=== PATIENT | male | born 1945 | race Caucasian/White ===

== ENCOUNTER → 2024-01-21 09:45 | Outpatient (REF) | payer OTHER, SELFPAY ==
[2024-01-23 15:56] LABS: % Free Testosterone 1.8 % (1.6-2.9); Free Testosterone 11 pg/mL (47-244); Sex Hormone Binding Globulin 28 nmol/L (19-76); Testosterone, Bioavailable 32 ng/dL (131-682); Total Testosterone 61 ng/dL (300-720)
== END ==
LOC: REG 09:45
PROVIDERS: ATTENDING PHYSICIAN Family Medicine Geriatric Medicine; FAMILY PHYSICIAN Internal Medicine
DX: Z79.818 Long term (current) use of other agents affecting estrogen receptors and estrogen levels (principal)
CPT/HCPCS: 36415; 84270; 84402; 84403

== ENCOUNTER 2024-05-11 17:25 | Emergency (ER) | payer OTHER, SELFPAY ==
[2024-05-11 17:27] VITALS: BP 160/68
--- NOTE | 2024-05-11 18:58 | ED.GENMED ---
History of Present Illness
General
Chief Complaint: Fall
Source: patient
Exam Limitations: none
Time Seen by Provider: 05/11/24 18:26
Nursing documentation reviewed up to this point in time: agreed with
History of Present Illness
History of Present Illness:
Patient is a 78-year-old male who presents today for evaluation. Patient reports prior to arrival he was standing 2 feet on a stool ladder and fell landing on his left shoulder and left rib area. He denies hitting his head. He is however on
Eliquis.
He denies any headache neck pain back pain. Does complain of soreness to the left rib. He primarily complains of left shoulder pain. He does report he has a prescription left elbow but that is not hurting him. No other injuries.
Past History
Past History
ED Past Medical History: GERD, HTN, NIDDM and Other (Peptic ulcer disease, pneumonia )
ED Past Surgical History: Appendectomy, Cholecystectomy and Other (Sinus surgery)
Social History
Tobacco: Non-smoker
Alcohol: None
Drug: None
Personal:
Employment: Employed
Family History
Family History: Other (longevity )
Review of Systems
Review of Systems
Allergies reviewed?: Yes
All Other Systems: ROS reviewed and negative except as documented in HPI and ROS
Constitutional: Reports no symptoms; Denies fever, fatigue or chills
Respiratory: Reports other (Left lateral rib area denies pain with deep breath); Denies trouble breathing
Cardiac: Reports no symptoms
ABD/GI: Reports no symptoms
: Reports no symptoms
Musculoskeletal: Reports other (+ left shoulder pain ); Denies neck pain or back pain
Skin: Reports no symptoms
Neurological: Denies dizzy or headache
Psychiatric: Reports no symptoms
Phy Exam
General Physical Exam
General Presentation: no apparent distress
General age: appears stated age
General Skin: warm and dry
General Habitus: elderly
General Mental: alert
General Hydration: appears well hydrated
Eye Exam
Eye Exam: PERRL and EOMI
Eye Exam General: PERRL: bilateral and EOM intact: bilateral
Pupil Exam: Bilateral: round and reactive
Cardiovascular Exam
Cardiovascular Exam: regular rate/rhythm, no murmur and normal peripheral pulses
Pulmonary Exam
Pulmonary Exam: lungs clear, no respiratory distress and other (Mild tenderness along ribs to left lateral axilla region no crepitus no ecchymosis or abrasions no pain with breath)
Neurological Exam
Neurological Exam: alert and oriented x3
Musculoskeletal Exam
Musculoskeletal Exam: other (Tender to left proximal humerus pain with left shoulder abduction and very decreased range of motion for left shoulder abduction normal distal sensation and fall intern strength normal strong pulses. No bony tenderness to
elbow positive abrasion to proximal forearm)
Skin Exam
Skin Exam: normal color and warm/dry
Psychiatric Exam
Psychiatric Exam: normal mood/affect
Course
Orders/Labs/Results
Orders:
Orders
05/11/24 17:30
CR Shoulder, Trauma - Left Urgent
Reason For Exam: fall
Elbow, Left [CR Elbow - Left Min 3 Views ] Urgent
Comment:
Reason For Exam: fall
05/11/24 18:33
CT Head W/o Iv Contrast Urgent
Comment:
Reason For Exam: trauma
05/11/24 18:57
Tetanus/Diphth/Acelpertussis [Adacel] 0.5 ml IM .ONCE ONE
05/11/24 19:01
Ribs, Left 3 View W/PA Chest CR [CR Ribs-left 3 Vw W/pa Chest] Urgent
Comment:
Reason For Exam: trauma
05/11/24 19:03
CT Cervical Spine W/o Iv Contr Urgent
Comment:
Reason For Exam: trauma
05/11/24 20:36
Sling Left-Treatment ONCE
Vital Signs
Initial and Last Documented VS:
Initial Vital Signs
Temp Pulse Resp BP Pulse Ox
98.3 F 69 20 160/68 95
05/11/24 17:27 05/11/24 17:27 05/11/24 17:27 05/11/24 17:27 05/11/24 17:27
Last Documented Vital Signs
Temp Pulse Resp BP Pulse Ox
98.3 F 62 20 109/53 98
05/11/24 17:27 05/11/24 20:48 05/11/24 20:48 05/11/24 20:48 05/11/24 20:48
MDM/Problems Addressed
Differential Diagnosis Includes:
Not limited to shoulder sprain strain, fracture, contusion, rib fracture versus contusion head injury
MDM/Problems Addressed:
Patient is a 78-year-old male who describes mechanical fall landing on left shoulder also hit left rib. He denies hitting his head but he is on Eliquis will CT his head and neck. Patient's primary complaint is his left shoulder on exam he is quite
tender and has decreased shoulder abduction. Patient with abrasion to elbow however nontender we will image his shoulder
*Radiology
Radiology exam reviewed: radiology read reviewed
*Pulse Oximetry
Patient hypoxic: no
*Critical Care Note
Total Time (30-74mins, 75-104mins- exclusive of procedures): Not Applicable
ED Attending Note
-
Portions of this chart may have been created with voice recognition software.� Occasional wrong word or��sound alike� substitutions may have occurred due to the inherent limitations of voice recognition software.
Discharge Plan
Departure
Patient Disposition: Home (Routine Discharge)
Date of Disposition: 05/11/24
Time of Disposition: 20:32
Patient with high blood pressure during this ER visit?: Yes
Condition: Fair
Covid-19: Not Applicable
Discharge Problem:
Left shoulder strain, Contusion of rib, Abrasion
Instructions: Contusion (DC), Bruised Rib (DC), Shoulder Pain ED, BLOOD PRESSURE
Prescriptions:
No Action
atenolol 25 MG tablet
50 mg PO DAILY
amlodipine 5 MG tablet
5 mg PO DAILY
sitagliptin phos-metformin [Janumet] 1 EACH tablet
100 mg PO DAILY
atorvastatin 40 MG tablet
40 mg PO DAILY
glipizide 10 MG tablet
10 mg PO DAILY
metformin 1,000 MG tablet
1,500 mg PO DAILY
apixaban [Eliquis] 5 MG tablet
5 mg PO DAILY
bisacodyl [Fleet Bisacodyl] 37 ML enema
37 ml ID TH
acetaminophen [Tylenol Extra Strength] 500 MG tablet
1,000 mg PO Q6HPRN PRN (Reason: pain)
canagliflozin [Invokana] 100 MG tablet
100 mg PO DAILY
Referrals:
Estella Mai I., DO [Active] -
Martha March OYSTER WORKER [Family Provider] -
Activity Restrictions/Additional Instructions:
As discussed there is no obvious fractures to your shoulder however please follow-up with orthopedics for further evaluation. Ice pack to the area for the next 24 to 48 hours 20 minutes at a time several times a day. You may wear sling for
support but remove at night while sleeping. Also remove several times a day and try to do gentle range of motion. You May take Tylenol for pain.
Call orthopedics tomorrow
Interventions
Interventions:
*Risk Screen - Suicide Last Done: 05/11/24 17:27
*General Assessment Last Done: 05/11/24 17:27
*Neglect/Abuse Screening Last Done: 05/11/24 17:27
ED- Fall Risk Assessment Last Done: 05/11/24 21:00
*ED COVID-19 Vaccine History Last Done: 05/11/24 17:27
*Nursing Disposition Last Done: 05/11/24 21:00
ED-Musculoskeletal Assessment Last Done: 05/11/24 17:59
ED- Neurological Assessment Last Done: 05/11/24 17:54
ED-Skin Assessment Last Done: 05/11/24 17:55
Discharge Date and Time
Discharge Date/Time: 05/11/24 21:00
Print Language: GEORGIAN
[2024-05-11] MEDS: ADACEL 0.5 ML IM (19:36)
[2024-05-11 20:48] VITALS: BP 109/53
== END 2024-05-11 21:00 | disposition home or self-care (01) ==
LOC: EMR 17:25
PROVIDERS: EMERGENCY PHYSICIAN Emergency Medicine; FAMILY PHYSICIAN Internal Medicine
DX: S46.912A Strain of unspecified muscle, fascia and tendon at shoulder and upper arm level, left arm, initial encounter (principal); S20.212A Contusion of left front wall of thorax, initial encounter; S50.312A Abrasion of left elbow, initial encounter; W11.XXXA Fall on and from ladder, initial encounter; R03.0 Elevated blood-pressure reading, without diagnosis of hypertension; Z23 Encounter for immunization
CPT/HCPCS: 99285; 90471; 70450; 71101; 72125; 73030; 73080; 90715

== ENCOUNTER → 2024-05-23 06:42 | Outpatient (REF) | payer OTHER, SELFPAY | LOC: MRI 06:42 | PROVIDERS: ATTENDING PHYSICIAN Orthopaedic Surgery; FAMILY PHYSICIAN Internal Medicine | DX: M25.512 Pain in left shoulder (principal) | CPT/HCPCS: 73221 ==

== ENCOUNTER 2024-07-20 06:34 | Day surgery (SDC) | payer OTHER, SELFPAY ==
[2024-07-04 10:15] VITALS: BMI 31.2
[2024-07-04 10:43] LABS: Hematocrit 39.4 % (39.0-52.0); Hemoglobin 13.1 g/dL (13.0-18.0); Mean Corp Hgb Conc. 33.2 g/dL (33.0-37.0); Mean Corpuscular Hgb 32.5 pg (27.0-31.0); Mean Corpuscular Volume 97.8 fL (80.0-94.0); Mean Platelet Volume 11.3 fL (7.4-10.4); Platelet Count 241 10^3/uL (130-400); Red Blood Cell Count 4.03 10^6/uL (4.70-6.10); Red Cell Dist. Width 13.9 % (11.5-14.5)
[2024-07-20] VITALS (18 sets, daily range): BP systolic 104–156; BP diastolic 56–107; BMI 31.2
[2024-07-20] MEDS: CELEBREX 200 MG PO (08:23)
[2024-07-20] MEDS: TYLENOL 1000 MG PO (08:23)
[2024-07-20] MEDS: NORMOSOL-R/PLASMALYTE-A 1000 IV (08:24)
[2024-07-20 08:28] LABS: Glucose - Point of Care 205 mg/dl (70-99)
[2024-07-20 12:18] LABS: Glucose - Point of Care 269 mg/dl (70-99)
[2024-07-20] MEDS: NOVOLOG vial 2 UNITS SC (12:30)
[2024-07-20 14:21] LABS: Glucose - Point of Care 247 mg/dl (70-99)
[2024-07-20] MEDS: NOVOLOG vial 1 UNITS SC (14:28)
[2024-07-20] MEDS: TYLENOL 650 MG PO (16:53)
== END 2024-07-20 17:23 | disposition home or self-care (01) ==
LOC: SDS 06:34
PROVIDERS: ATTENDING PHYSICIAN Orthopaedic Surgery; FAMILY PHYSICIAN Internal Medicine
DX: S46.012A Strain of muscle(s) and tendon(s) of the rotator cuff of left shoulder, initial encounter (principal); S46.212A Strain of muscle, fascia and tendon of other parts of biceps, left arm, initial encounter; X58.XXXA Exposure to other specified factors, initial encounter
CPT/HCPCS: 29827; 36415; 71045; 82962; 85027; C1713

== ENCOUNTER 2024-09-06 13:20 | Outpatient (RCR) | payer OTHER, SELFPAY | END 2024-09-06 23:59 | disposition home or self-care (01) | LOC: RPT 13:20 | PROVIDERS: ATTENDING PHYSICIAN Physician Assistant Medical | DX: Z47.89 Encounter for other orthopedic aftercare (principal); M75.122 Complete rotator cuff tear or rupture of left shoulder, not specified as traumatic (principal); Z98.890 Other specified postprocedural states; Z73.6 Limitation of activities due to disability; M25.512 Pain in left shoulder | CPT/HCPCS: 97010; 97110; 97140; 97162 ==

== ENCOUNTER 2024-10-02 12:58 | Outpatient (RCR) | payer OTHER, SELFPAY | END 2024-10-02 23:59 | disposition home or self-care (01) | LOC: RPT 12:58 | PROVIDERS: ATTENDING PHYSICIAN Physician Assistant Medical | DX: Z47.89 Encounter for other orthopedic aftercare (principal); M75.122 Complete rotator cuff tear or rupture of left shoulder, not specified as traumatic (principal); Z98.890 Other specified postprocedural states; Z73.6 Limitation of activities due to disability; M62.81 Muscle weakness (generalized) | CPT/HCPCS: 97010; 97110; 97140 ==

== ENCOUNTER → 2024-10-04 09:56 | Outpatient (REF) | payer OTHER, SELFPAY | LOC: RCS 09:56 | PROVIDERS: ATTENDING PHYSICIAN Internal Medicine Cardiovascular Disease; FAMILY PHYSICIAN Internal Medicine; OTHER PHYSICIAN Nurse Practitioner | DX: I34.0 Nonrheumatic mitral (valve) insufficiency (principal) | CPT/HCPCS: 93306 ==

== ENCOUNTER 2024-11-03 12:51 | Outpatient (RCR) | payer OTHER, SELFPAY | END 2024-11-03 23:59 | disposition home or self-care (01) | LOC: RPT 12:51 | PROVIDERS: ATTENDING PHYSICIAN Physician Assistant Medical | DX: Z47.89 Encounter for other orthopedic aftercare (principal); M75.122 Complete rotator cuff tear or rupture of left shoulder, not specified as traumatic; Z73.6 Limitation of activities due to disability; M62.81 Muscle weakness (generalized); Z98.890 Other specified postprocedural states | CPT/HCPCS: 97010; 97110; 97140 ==

== ENCOUNTER 2024-12-05 13:51 | Outpatient (RCR) | payer OTHER, SELFPAY | END 2024-12-05 23:59 | disposition home or self-care (01) | LOC: RPT 13:51 | PROVIDERS: ATTENDING PHYSICIAN Physician Assistant Medical | DX: Z47.89 Encounter for other orthopedic aftercare (principal); M75.122 Complete rotator cuff tear or rupture of left shoulder, not specified as traumatic; Z73.6 Limitation of activities due to disability; M62.81 Muscle weakness (generalized) | CPT/HCPCS: 97010; 97110; 97140 ==

== ENCOUNTER 2024-12-19 06:33 | Day surgery (SDC) | payer OTHER, SELFPAY ==
[2024-12-11 13:19] VITALS: BMI 34.1
[2024-12-19 07:28] LABS: Glucose - Point of Care 195 mg/dl (70-99)
[2024-12-19 07:32] VITALS: BMI 32.1
== END 2024-12-19 08:47 | disposition home or self-care (01) ==
LOC: CATH 06:33
PROVIDERS: ATTENDING PHYSICIAN Internal Medicine Cardiovascular Disease; FAMILY PHYSICIAN Internal Medicine
DX: I48.19 Other persistent atrial fibrillation (principal); E11.9 Type 2 diabetes mellitus without complications; E66.9 Obesity, unspecified; E78.5 Hyperlipidemia, unspecified; I08.1 Rheumatic disorders of both mitral and tricuspid valves; I10 Essential (primary) hypertension; K76.0 Fatty (change of) liver, not elsewhere classified; M85.80 Other specified disorders of bone density and structure, unspecified site; Z68.34 Body mass index [BMI] 34.0-34.9, adult; Z79.01 Long term (current) use of anticoagulants; Z79.4 Long term (current) use of insulin; Z79.84 Long term (current) use of oral hypoglycemic drugs; Z79.899 Other long term (current) drug therapy; Z85.828 Personal history of other malignant neoplasm of skin; Z86.0100 Personal history of colon polyps, unspecified; Z87.19 Personal history of other diseases of the digestive system; Z87.891 Personal history of nicotine dependence; Z88.1 Allergy status to other antibiotic agents; Z88.0 Allergy status to penicillin; Z88.5 Allergy status to narcotic agent; Z88.8 Allergy status to other drugs, medicaments and biological substances; Z90.89 Acquired absence of other organs; Z90.49 Acquired absence of other specified parts of digestive tract
CPT/HCPCS: 82962; 92960; 93005

== ENCOUNTER 2024-12-29 06:46 | Outpatient (RCR) | payer OTHER, SELFPAY | END 2024-12-29 23:59 | disposition home or self-care (01) | LOC: RPT 06:46 | PROVIDERS: ATTENDING PHYSICIAN Physician Assistant Medical | DX: Z47.89 Encounter for other orthopedic aftercare (principal); M75.122 Complete rotator cuff tear or rupture of left shoulder, not specified as traumatic; Z73.6 Limitation of activities due to disability; M62.81 Muscle weakness (generalized) | CPT/HCPCS: 97010; 97110 ==

== ENCOUNTER 2025-02-20 12:08 | Inpatient (IN) | payer OTHER, SELFPAY ==
--- NOTE | 2025-02-20 11:14 | W.PN.CD ---
Addendum entered and electronically signed by Arnol Blount MD 02/20/25 14:49:
I saw and examined the patient.
The CUSTOMER FACILITIES SUPERVISOR's note was reviewed and I agree with the note.
79-year-old male with a history of paroxysmal atrial fibrillation moderate mitral regurgitation, previous history of TIA and presumed coronary artery disease based on abnormal stress test, diabetes who presents for evaluation he has had paroxysmal
atrial fibrillation he says he has been back in sinus rhythm last 2 weeks he feels more fatigued when he is in sinus rhythm. Based on the above we discussed options for additional rhythm control. Plan for admission for sotalol. Incidentally
patient noted to be hyperglycemic. Will proceed as follows
- Continue anticoagulation with Eliquis
- Discontinue atenolol
- Start sotalol with monitoring as per protocol
- Additional consultation for diabetes management
Original Note:
Today's Communication / Plan
-
*THIS IS THE H&P SUMMARY. PLEASE SEE SCANNED H&P*
Await BMP. Sotalol loading per protocol.
Impression / Plan
-
I/P: 79M with paroxysmal atrial fibrillation, moderate mitral regurgitation, TIA, presumed CAD (abnormal stress test without symptoms), type 2 diabetes mellitus, asthma, and prostate cancer status post XRT presents for sotalol loading.
Primary wrecker operator: Dr. Blount
Paroxysmal atrial fibrillation
- More frequent paroxysmal episodes some becoming persistent
- Stop atenolol
- S/p DCCV 12/19/2024 and presented back to the office 01/11/2025 again in atrial fibrillation
- The plan is for rhythm control with sotalol. Await BMP. Sotalol loading per protocol.
- Oral Anticoagulation: Apixaban 5 mg twice daily, he denies missed doses and abnormal bleeding
- [id number]: Score at least 5 (HTN, age 75 or more, prior Stroke/TIA), 6 if we add vascular disease (presumed)
Mitral regurgitation, moderate
Presumed CAD, stable without chest pain
Prior TIA
Type 2 diabetes mellitus, with hyperglycemia, he may need diabetic CUSTOMER FACILITIES SUPERVISOR assistance
Asthma, chronic, stable without wheeze, no acute exacerbation
SUBJECTIVE:
He denies chest pain, shortness of breath, and dizziness.
DATA:
Transthoracic echocardiogram 10/04/2024:
Estimated left ventricular ejection fraction is 50-55%. Normal regional wall
motion.
Normal right ventricular size and function.
Moderately dilated left atrium.
Moderate mitral regurgitation.
Aortic sclerosis without stenosis.
Mild tricuspid regurgitation. Estimated pulmonary artery pressure of 30-35
mmHg.
Compared to previous echo on 07/21/2023, slightly progressive mitral
regurgitation is noted.
Data Reviewed
-
Date of Service: February 20, 2025
[2025-02-20 12:25] VITALS: BP 156/68
[2025-02-20 12:27] VITALS: BMI 28.6
[2025-02-20 13:12] LABS: Blood Urea Nitrogen 27 mg/dl (9-20); Calcium 9.8 mg/dl (8.4-10.2); Carbon Dioxide 23 mmol/L (22-30); Chloride 103 mmol/L (98-107); Estimated Creatinine Clearance 66 ml/min; Glucose 426 mg/dl (70-99); Potassium 4.9 mmol/L (3.5-5.1); Sodium 134 mmol/L (135-145); eGFR > 60.00
[2025-02-20] MEDS: BETAPACE 80 MG PO (13:42)
--- NOTE | 2025-02-20 13:42 | CM ---
Reviewed chart. Met with Mr. Solorzano to review discharge plans. He states prior to admission he resides alone in a two story home without any steps to enter. He states he has a first floor set-up. His main suite is on the first floor. He states prior
to admission he was independent with ambulation and adls. He states he does not have any DME in the home. He states he has a prescription plan and uses [facility]. Medical work-up in progress. The discharge plan is to return home when medically
stable.
[2025-02-20] MEDS: NORVASC 5 MG PO (14:05)
[2025-02-20 15:18] VITALS: BP 133/64
[2025-02-20] MEDS: JANUVIA 100 MG PO (15:23)
[2025-02-20] MEDS: NOVOLOG FLEXPEN-LOW RESISTANCE 5 UNITS SC (15:26)
[2025-02-20 15:51] VITALS: BMI 28.6
[2025-02-20 16:41] LABS: Magnesium 2.0 mg/dl (1.6-2.3)
--- NOTE | 2025-02-20 16:43 | PTCARENOTE ---
Pt received at 1225 as a direct admit for Sotalol. Arrived in SR rate in the 80's to 90's. Medicated with Sotalol 80mg po as ordered. Pt oob ad herbert. Denies any pain or discomfort. Room air sat 98%.
[2025-02-20] MEDS: NOVOLOG FLEXPEN-LOW RESISTANCE 3 UNITS SC (17:44)
[2025-02-20 18:51] VITALS: BP 123/56
[2025-02-20] MEDS: ELIQUIS 5 MG PO (19:37)
[2025-02-20 22:10] VITALS: BP 144/65
[2025-02-20] MEDS: LIPITOR 40 MG PO (22:15)
[2025-02-20] MEDS: ZOLOFT 75 MG PO (22:15)
[2025-02-20] MEDS: LANTUS 0.2 UNITS SC (22:15)
[2025-02-21] VITALS (8 sets, daily range): BP systolic 116–157; BP diastolic 52–122
[2025-02-21] MEDS: BETAPACE 80 MG PO ×3 (00:04→22:00)
--- NOTE | 2025-02-21 00:30 | PTCARENOTE ---
Pt rec'd at shift change awake,alert Sinus on telemetry with pvc's. Dose # 2 Sotalol given with next ptt due at 0200.
--- NOTE | 2025-02-21 00:37 | PTCARENOTE ---
At 0031 pt converted to controlled afib
[2025-02-21] MEDS: ELIQUIS 5 MG PO ×2 (07:43→20:40)
[2025-02-21] MEDS: NORVASC 5 MG PO (07:43)
[2025-02-21 07:49] LABS: Glucose - Point of Care 210 mg/dl (70-99)
[2025-02-21] MEDS: NOVOLOG FLEXPEN-LOW RESISTANCE 2 UNITS SC ×2 (07:49→12:06)
[2025-02-21] MEDS: JANUVIA 100 MG PO (07:51)
[2025-02-21] MEDS: GLUCOPHAGE 750 MG PO (07:51)
[2025-02-21 07:52] LABS: Glucose - Point of Care 261 mg/dl (70-99)
[2025-02-21 07:52] LABS: Glucose - Point of Care 390 mg/dl (70-99)
[2025-02-21 07:52] LABS: Glucose - Point of Care 288 mg/dl (70-99)
[2025-02-21] MEDS: GLUCOTROL 5 MG PO (07:53)
[2025-02-21 09:12] LABS: Glycohemoglobin (HgbA1c) 8.7 % (4.0-5.6)
--- NOTE | 2025-02-21 10:22 | W.PN.CD ---
Today's Communication / Plan
-
cont sotalol
Impression / Plan
-
I/P: 79M with paroxysmal atrial fibrillation, moderate mitral regurgitation, TIA, presumed CAD (abnormal stress test without symptoms), type 2 diabetes mellitus, asthma, and prostate cancer status post XRT presents for sotalol loading.
Primary consulting actuary: Dr. Blount
Paroxysmal atrial fibrillation
- More frequent paroxysmal episodes some becoming persistent
- Stop atenolol
- S/p DCCV 12/19/2024 and presented back to the office 01/11/2025 again in atrial fibrillation
- The plan is for rhythm control with sotalol. Await BMP. Sotalol loading per protocol.
- Oral Anticoagulation: Apixaban 5 mg twice daily, he denies missed doses and abnormal bleeding
- [id number]: Score at least 5 (HTN, age 75 or more, prior Stroke/TIA), 6 if we add vascular disease (presumed)
- QTC noted cont to monitor discussed with EP
Mitral regurgitation, moderate
Presumed CAD, stable without chest pain
Prior TIA
Type 2 diabetes mellitus, with hyperglycemia, he may need diabetic TEACHER HEARING IMPAIRED assistance
Asthma, chronic, stable without wheeze, no acute exacerbation
SUBJECTIVE:
Feeling well
DATA:
Transthoracic echocardiogram 10/04/2024:
Estimated left ventricular ejection fraction is 50-55%. Normal regional wall
motion.
Normal right ventricular size and function.
Moderately dilated left atrium.
Moderate mitral regurgitation.
Aortic sclerosis without stenosis.
Mild tricuspid regurgitation. Estimated pulmonary artery pressure of 30-35
mmHg.
Compared to previous echo on 07/21/2023, slightly progressive mitral
regurgitation is noted.
Physical Exam
Vital Signs/Labs
Vital Signs
Temp Pulse Resp BP Pulse Ox
98.6 F 78 18 132/65 98
02/21/25 07:07 02/21/25 07:15 02/21/25 07:07 02/21/25 07:02 02/21/25 08:00
02/20/25 02/21/25 02/22/25
06:59 06:59 06:59
Actual Weight 177 lb 0.499 oz
02/20/25 12:37
Magnesium 2.0 mg/dl (1.6-2.3) 02/20/25 12:37
Physical Exam
Constitutional: No acute distress and Comfortable
EENT: Anicteric
Cardiovascular: Rhythm & rate is regular
Respiratory: Respiratory effort normal and Lungs clear to auscul.
GI: Soft
Neuro/Psych: AO x 3
Data Reviewed
-
Date of Service: February 21, 2025
Medical Decision Making: Reviewed Test Results
EKG: Tracing Personally Visualized and interpreted (sr)
Echo: Report Reviewed by me
Labs: Labs Reviewed by me
[2025-02-21 12:48] LABS: Glucose - Point of Care 171 mg/dl (70-99)
--- NOTE | 2025-02-21 16:31 | PTCARENOTE ---
Pt received this am with no c/o of pain or sob. Remains in SR, rate in the 70's to 80's. Tolerating the Sotalol without any issues.
[2025-02-21 17:26] LABS: Glucose - Point of Care 118 mg/dl (70-99)
[2025-02-21] MEDS: NOVOLOG FLEXPEN-LOW RESISTANCE SC (17:44)
[2025-02-21 21:51] LABS: Glucose - Point of Care 220 mg/dl (70-99)
[2025-02-21] MEDS: ZOLOFT 75 MG PO (22:01)
[2025-02-21] MEDS: LIPITOR 40 MG PO (22:02)
[2025-02-21] MEDS: LANTUS 0.2 UNITS SC (22:06)
[2025-02-22] VITALS (8 sets, daily range): BP systolic 126–154; BP diastolic 53–110
--- NOTE | 2025-02-22 03:42 | PTCARENOTE ---
Assumed care on pt at 1900, aaox3, no c/o of pain or sob. SR in the tele monitoring, rate in the 70's to 80's. Tolerating Sotalol without any issues, dose # 4 given and post EKG obtained. Call kamara within reach, POC ongoing.
--- NOTE | 2025-02-22 06:24 | PTCARENOTE ---
Pt back in Afib rhythm on the tele monitor at 0601 this morning, EKG obtained confirming Afib w pvc's, Hr 90-100's. Asymptomatic.
[2025-02-22 08:05] LABS: Glucose - Point of Care 160 mg/dl (70-99)
--- NOTE | 2025-02-22 09:05 | W.PN.CD ---
Today's Communication / Plan
-
Patient without symptoms. In sinus rhythm this morning and ambulating. Continued observation as patient receives 5th and 6th dose
Impression / Plan
-
I/P: 79M with paroxysmal atrial fibrillation, moderate mitral regurgitation, TIA, presumed CAD (abnormal stress test without symptoms), type 2 diabetes mellitus, asthma, and prostate cancer status post XRT presents for sotalol loading.
Primary buyer tobacco head: Dr. Blount
Paroxysmal atrial fibrillation
- More frequent paroxysmal episodes some becoming persistent
- Stopped atenolol
- S/p DCCV 12/19/2024 and presented back to the office 01/11/2025 again in atrial fibrillation
- The plan is for rhythm control with sotalol. Await BMP. Sotalol loading per protocol.
- Oral Anticoagulation: Apixaban 5 mg twice daily, he denies missed doses and abnormal bleeding
- [id number]: Score at least 5 (HTN, age 75 or more, prior Stroke/TIA), 6 if we add vascular disease (presumed)
- QTC 470 continue to monitor.
Mitral regurgitation, moderate
Presumed CAD, stable without chest pain
Prior TIA
Type 2 diabetes mellitus, with hyperglycemia, he may need diabetic ELECTRIC METER READER assistance
Asthma, chronic, stable without wheeze, no acute exacerbation
SUBJECTIVE:
Feeling well
DATA:
Transthoracic echocardiogram 10/04/2024:
Estimated left ventricular ejection fraction is 50-55%. Normal regional wall
motion.
Normal right ventricular size and function.
Moderately dilated left atrium.
Moderate mitral regurgitation.
Aortic sclerosis without stenosis.
Mild tricuspid regurgitation. Estimated pulmonary artery pressure of 30-35
mmHg.
Compared to previous echo on 07/21/2023, slightly progressive mitral
regurgitation is noted.
Physical Exam
Vital Signs/Labs
Vital Signs
Temp Pulse Resp BP Pulse Ox
98.0 F 77 18 146/53 95
02/22/25 07:04 02/22/25 05:00 02/22/25 07:04 02/22/25 03:30 02/22/25 07:04
02/21/25 02/22/25 02/23/25
06:59 06:59 06:59
Actual Weight 80.3 kg
02/20/25 12:37
Magnesium 2.0 mg/dl (1.6-2.3) 02/20/25 12:37
Physical Exam
Constitutional: No acute distress
Cardiovascular: Rhythm & rate is regular
Respiratory: Respiratory effort normal
GI: Soft and Non tender
Neuro/Psych: Alert
Data Reviewed
-
Date of Service: February 22, 2025
Medical Decision Making: Reviewed Test Results
Echo: Report Reviewed by me
Medical Tests (PFT, Pathology etc): Report Reviewed by me
Labs: Labs Reviewed by me
[2025-02-22] MEDS: NOVOLOG FLEXPEN-LOW RESISTANCE 1 UNITS SC (09:29)
[2025-02-22] MEDS: ELIQUIS 5 MG PO ×2 (09:29→19:52)
[2025-02-22] MEDS: BETAPACE 80 MG PO ×2 (09:29→19:51)
[2025-02-22] MEDS: GLUCOPHAGE 750 MG PO (09:30)
[2025-02-22] MEDS: NORVASC 5 MG PO (09:30)
[2025-02-22] MEDS: GLUCOTROL 5 MG PO (09:30)
[2025-02-22] MEDS: JANUVIA 100 MG PO (09:30)
--- NOTE | 2025-02-22 10:53 | CM ---
Reviewed chart. Met with Mr. Solorzano to review discharge plans. He states he is feeling better. Prior to admission he resides alone in a two story home without any steps to enter. He has first floor set-up. His main suite is on the first floor.
Prior to admission he was independent with ambulation and adls. He does not have any DME in the home. He has a prescription plan and uses [facility]. Medical work-up in progress. The discharge plan is to return home when medically stable.
[2025-02-22 11:36] LABS: Glucose - Point of Care 286 mg/dl (70-99)
[2025-02-22] MEDS: NOVOLOG FLEXPEN-LOW RESISTANCE 3 UNITS SC (14:08)
[2025-02-22 16:14] LABS: Glucose - Point of Care 218 mg/dl (70-99)
[2025-02-22] MEDS: NOVOLOG FLEXPEN-LOW RESISTANCE 2 UNITS SC (17:30)
[2025-02-22 18:05] LABS: Hepatitis C Antibody Negative (Negative)
--- NOTE | 2025-02-22 19:10 | PTCARENOTE ---
~8018-2212: handoff report received from nightshift RN. pt AOx4, NSR with PVCs on tele 70s-80s, SBP 120s-150s, RA satting 95%. Pt deneis pain at this time. Sotolol dose #5 given per order. All needs met at this time, call kamara within reach.
~2023-8564: EKG obtained per protocol for QTC monitoring.
~3049-1779: Pt Aox4, NSR with PVCs on tele, RA. Independent in room No c/o pain at this time. All needs met, call kamara within reach. Handoff report given to nightshift RN.
[2025-02-22 21:36] LABS: Glucose - Point of Care 313 mg/dl (70-99)
[2025-02-22] MEDS: ZOLOFT 75 MG PO (22:33)
[2025-02-22] MEDS: LIPITOR 40 MG PO (22:33)
[2025-02-22 22:38] LABS: Glucose - Point of Care 264 mg/dl (70-99)
[2025-02-22] MEDS: LANTUS 0.2 UNITS SC (22:38)
--- NOTE | 2025-02-23 01:39 | PTCARENOTE ---
Assumed care on pt at 1900, aaox3, no c/o of pain or sob. Heart rhythm changing often between Afib and SR, asymptomatic, HR in the 70's to 80'swhen SR and 100's when Afib. Tolerating Sotalol without any issues, dose # 6 given. Call kamara within
reach, POC ongoing.
[2025-02-23 03:53] VITALS: BP 136/73
--- NOTE | 2025-02-23 07:22 | W.PN.CD ---
Today's Communication / Plan
-
Feels well tolerating sotalol and in sinus rhythm.
ECG this morning. Plan for discharge today
Patient will remain off atenolol
Impression / Plan
-
I/P: 79M with paroxysmal atrial fibrillation, moderate mitral regurgitation, TIA, presumed CAD (abnormal stress test without symptoms), type 2 diabetes mellitus, asthma, and prostate cancer status post XRT presents for sotalol loading.
Primary tankage supervisor: Dr. Blount
Paroxysmal atrial fibrillation
- More frequent paroxysmal episodes some becoming persistent
- Stopped atenolol
- S/p DCCV 12/19/2024 and presented back to the office 01/11/2025 again in atrial fibrillation
- The plan is for rhythm control with sotalol. Await BMP. Sotalol loading per protocol.
- Oral Anticoagulation: Apixaban 5 mg twice daily, he denies missed doses and abnormal bleeding
- [id number]: Score at least 5 (HTN, age 75 or more, prior Stroke/TIA), 6 if we add vascular disease (presumed)
- QTC 466 continue to monitor.
Mitral regurgitation, moderate
Presumed CAD, stable without chest pain
Prior TIA
Type 2 diabetes mellitus, with hyperglycemia, he may need diabetic PENOLOGY TEACHER assistance
Asthma, chronic, stable without wheeze, no acute exacerbation
SUBJECTIVE:
Feeling well
DATA:
Transthoracic echocardiogram 10/04/2024:
Estimated left ventricular ejection fraction is 50-55%. Normal regional wall
motion.
Normal right ventricular size and function.
Moderately dilated left atrium.
Moderate mitral regurgitation.
Aortic sclerosis without stenosis.
Mild tricuspid regurgitation. Estimated pulmonary artery pressure of 30-35
mmHg.
Compared to previous echo on 07/21/2023, slightly progressive mitral
regurgitation is noted.
Physical Exam
Vital Signs/Labs
Vital Signs
Temp Pulse Resp BP Pulse Ox
97.5 F 84 18 136/73 95
02/23/25 03:53 02/23/25 06:00 02/23/25 03:53 02/23/25 03:53 02/23/25 03:53
02/20/25 12:37
Magnesium 2.0 mg/dl (1.6-2.3) 02/20/25 12:37
Physical Exam
Constitutional: No acute distress
Cardiovascular: Rhythm & rate is regular
Respiratory: Wheeze Absent and Rhonchi Absent
GI: Soft
Neuro/Psych: Alert
Data Reviewed
-
Date of Service: February 23, 2025
Medical Decision Making: Reviewed Test Results
Echo: Report Reviewed by me
Labs: Labs Reviewed by me
[2025-02-23 07:45] LABS: Glucose - Point of Care 158 mg/dl (70-99)
[2025-02-23 07:47] VITALS: BP 143/85
--- NOTE | 2025-02-23 08:15 | W.DS.TRANS ---
DC Summary - Vending Machine Technician
-
Discharge Instructions:
Sleep Apnea Risk Low
Discharge Diagnosis/Procedures Paroxysmal atrial fibrillation
Sotalol loading
Diet Diabetic, Carb Controlled,Low Cholesterol
Activity No restrictions
Driving Restrictions As prior to admission
Bathing Restrictions None
Instructions:
Stand-Alone Forms:
Changes to Home Medications: Yes
Discharge Medications:
DC Medications w/original date entered in [facility]
amlodipine 5 mg tablet 5 mg PO DAILY 10/22/11
apixaban 5 mg tablet (Eliquis) 5 mg PO BID 05/20/21
atorvastatin 40 mg tablet 40 mg PO HS 05/20/21
glipizide 10 mg tablet 5 mg PO DAILY 05/20/21
metformin 1,000 mg tablet 750 mg PO DAILY 05/20/21
albuterol sulfate 90 mcg/actuation aerosol inhaler 2 puff inhalation 6XD PRN congestion 07/13/24
insulin glargine 100 unit/mL (3 mL) subcutaneous pen (Lantus Solostar U-100 Insulin) 20 unit SC HS 07/13/24
sertraline 25 mg tablet 75 mg PO HS 07/13/24
acetaminophen 325 mg tablet 650 mg PO Q4H PRN pain/fever 12/11/24
sitagliptin phosphate 100 mg tablet (Januvia) 100 mg PO DAILY 12/11/24
sotalol 80 mg tablet 80 mg PO BID #60 tabs 02/23/25
Home Medication Changes
Sotalol is new.
Atenolol stopped.
Pending Results: No
--- NOTE | 2025-02-23 08:16 | W.DCSUMMARY ---
Discharge Summary
Discharge Data
Date of Admission: 02/20/25
Date of Discharge: 02/23/25
Total time spent discharging patient (in min): 32
-
Pending Results: No
Hospital Course
Mr. Solorzano is an 79 year old male with paroxysmal atrial fibrillation on Eliquis, moderate mitral regurgitation, TIA, presumed CAD (abnormal stress test without symptoms), type 2 diabetes mellitus, asthma, and prostate cancer status post XRT, who
presents for sotalol loading. His primary sandstone splitter is Dr. Blount.
Paroxysmal atrial fibrillation
- More frequent paroxysmal episodes some becoming persistent
- Stopped atenolol
- S/p DCCV 12/19/2024 and presented back to the office 01/11/2025 again in atrial fibrillation
- The plan is for rhythm control with sotalol. Sotalol loading per protocol.
- Oral Anticoagulation: Apixaban 5 mg twice daily, he denies missed doses and abnormal bleeding
- [id number]: Score at least 5 (HTN, age 75 or more, prior Stroke/TIA), 6 if we add vascular disease (presumed)
- QTC 466 ms, stable
Mitral regurgitation, moderate
Presumed CAD, stable without chest pain
Prior TIA
Type 2 diabetes mellitus, with hyperglycemia, he may need diabetic PAPER TWISTER assistance
Asthma, chronic, stable without wheeze, no acute exacerbation
Discharge Plan
-
Patient Disposition: Home (Routine Discharge)
Discharge Diagnosis/Procedures: Paroxysmal atrial fibrillation
Sotalol loading
Condition: Good
Diet: Low Cholesterol and Diabetic, Carb Controlled
Activity: No restrictions
Driving Restrictions: As prior to admission
Bathing Restrictions: None
Referrals:
Savanah Flores CRNP [Specified Professional Personl, Cardiology] - 03/06/25 1:40 pm
Martha March NP [Family Provider, Internal Medicine] - in four to six weeks
Prescriptions:
New
sotalol 80 mg Tablet
80 mg PO BID Qty: 60 3RF
Continued
amlodipine 5 MG tablet
5 mg PO DAILY
atorvastatin 40 MG tablet
40 mg PO HS
glipizide 10 MG tablet
5 mg PO DAILY
metformin 1,000 MG tablet
750 mg PO DAILY
Eliquis 5 MG tablet
5 mg PO BID
insulin glargine [Lantus Solostar U-100 Insulin] 100 unit/mL (3 mL) insulin pen
20 unit SC HS
sertraline 25 mg Tablet
75 mg PO HS
albuterol sulfate 90 mcg/actuation Hfa Aerosol Inhaler
2 puff INHALATION 6XD PRN (Reason: congestion)
acetaminophen 325 mg Tablet
650 mg PO Q4H PRN (Reason: pain/fever)
Januvia 100 mg Tablet
100 mg PO DAILY
Discontinued
atenolol 25 MG tablet
50 mg PO DAILY
Discharge Orders:
Discharge Patient (As Directed); Ordered 02/23/25
Ordered By: Savanah Flores
Care Plan Goals
Care Plan Goals:
Problem: Readiness for enhanced knowledge related to diagnosis and treatment plan
Goal: Understand your diagnosis and treatment plan needs, including medications if applicable.
Instructions: Know your diagnosis, underlying causes and treatment plan options, including medications if applicable. Consult with your health care team to learn about your diagnosis and treatment plan, including medications if applicable.
Discharge Date and Time
Print Language: JAPANESE
--- NOTE | 2025-02-23 08:49 | CM ---
Reviewed chart. Met with Mr. Solorzano to review discharge plans. He states he is feeling well and maybe able to go home soon. Prior to admission he resides alone in a two story home without any steps to enter. He has a first floor set-up. His main
suite in on the first floor. Prior to admission he was independent wt ambulation and adls. He does not have any DME in the home. He has a prescription plan and uses [facility]. Medical work-up in progress. The discharge plan is to return home
when medically stable.
[2025-02-23] MEDS: BETAPACE 80 MG PO (09:23)
[2025-02-23] MEDS: GLUCOPHAGE 750 MG PO (09:23)
[2025-02-23] MEDS: ELIQUIS 5 MG PO (09:23)
[2025-02-23] MEDS: NORVASC 5 MG PO (09:23)
[2025-02-23] MEDS: GLUCOTROL 5 MG PO (09:24)
[2025-02-23] MEDS: JANUVIA 100 MG PO (09:24)
[2025-02-23] MEDS: NOVOLOG FLEXPEN-LOW RESISTANCE SC (09:32)
[2025-02-23 12:07] LABS: Glucose - Point of Care 170 mg/dl (70-99)
--- NOTE | 2025-02-23 13:20 | PTCARENOTE ---
pt is sr on the monitor, hr in the 80s, vss. pt offers no complaints at this time. pt ambulating in room and tolerating well. pt educated on plan of care.
d/c instructions read to pt and pt verbalized understanding. iv and tele removed. pt left via wheelchair w/ staff member.
== END 2025-02-23 13:59 | disposition home or self-care (01) | DRG 310 ==
LOC: IVU 12:08
PROVIDERS: Nurse Practitioner Gerontology; ADMITTING PHYSICIAN Internal Medicine Cardiovascular Disease; FAMILY PHYSICIAN Internal Medicine
DX: I48.0 Paroxysmal atrial fibrillation (principal); I34.0 Nonrheumatic mitral (valve) insufficiency; I25.10 Atherosclerotic heart disease of native coronary artery without angina pectoris; E11.65 Type 2 diabetes mellitus with hyperglycemia; J45.909 Unspecified asthma, uncomplicated; Z79.01 Long term (current) use of anticoagulants; Z79.4 Long term (current) use of insulin; Z79.84 Long term (current) use of oral hypoglycemic drugs; Z79.899 Other long term (current) drug therapy; Z86.73 Personal history of transient ischemic attack (TIA), and cerebral infarction without residual deficits
CPT/HCPCS: 80048; 82962; 83036; 83735; 86803; 93005

== ENCOUNTER → 2025-03-13 06:45 | Outpatient (REF) | payer OTHER, SELFPAY ==
[2025-03-13 08:06] LABS: Hematocrit 29.1 % (39.0-52.0); Hemoglobin 9.1 g/dL (13.0-18.0); Mean Corp Hgb Conc. 31.3 g/dL (33.0-37.0); Mean Corpuscular Volume 87.1 fL (80.0-94.0); Nucleated Red Blood Cells % 0 % (-); Platelet Count 388 10^3/uL (130-400); Red Cell Dist. Width 16.0 % (11.5-14.5)
[2025-03-13 08:48] LABS: ALT (SGPT) 46 U/L (0-50); AST (SGOT) 44 U/L (17-59); Albumin 3.5 g/dl (3.5-5.0); Alkaline Phosphatase 138 U/L (38-126); Blood Urea Nitrogen 18 mg/dl (9-20); Calcium 10.1 mg/dl (8.4-10.2); Carbon Dioxide 29 mmol/L (22-30); Chloride 99 mmol/L (98-107); Glucose 163 mg/dl (70-99); Potassium 4.1 mmol/L (3.5-5.1); Sodium 135 mmol/L (135-145); Total Protein 6.4 g/dl (6.3-8.2); eGFR > 60.00
== END ==
LOC: REG 06:45
PROVIDERS: ATTENDING PHYSICIAN Internal Medicine
DX: R63.4 Abnormal weight loss (principal); R63.0 Anorexia; R53.83 Other fatigue; I48.0 Paroxysmal atrial fibrillation; E11.69 Type 2 diabetes mellitus with other specified complication; D68.69 Other thrombophilia; I10 Essential (primary) hypertension; Z68.28 Body mass index [BMI] 28.0-28.9, adult; J45.909 Unspecified asthma, uncomplicated; Z85.46 Personal history of malignant neoplasm of prostate; F32.9 Major depressive disorder, single episode, unspecified; F41.9 Anxiety disorder, unspecified
CPT/HCPCS: 36415; 80053; 84443; 85025

== ENCOUNTER → 2025-03-26 11:18 | Outpatient (REF) | payer OTHER, SELFPAY ==
[2025-03-26 12:28] LABS: Hematocrit 30.8 % (39.0-52.0); Hemoglobin 9.4 g/dL (13.0-18.0); Mean Corp Hgb Conc. 30.5 g/dL (33.0-37.0); Mean Corpuscular Volume 88.3 fL (80.0-94.0); Nucleated Red Blood Cells % 0.2 % (-); Platelet Count 462 10^3/uL (130-400); Red Cell Dist. Width 17.0 % (11.5-14.5)
[2025-03-26 12:46] LABS: ALT (SGPT) 30 U/L (0-50); AST (SGOT) 51 U/L (17-59); Albumin 3.7 g/dl (3.5-5.0); Alkaline Phosphatase 143 U/L (38-126); Blood Urea Nitrogen 15 mg/dl (9-20); Calcium 10.1 mg/dl (8.4-10.2); Carbon Dioxide 27 mmol/L (22-30); Chloride 97 mmol/L (98-107); GGTP 99 U/L (15-73); Glucose 319 mg/dl (70-99); Iron 34 ug/dl (49-181); Potassium 4.6 mmol/L (3.5-5.1); Sodium 133 mmol/L (135-145); Total Protein 6.8 g/dl (6.3-8.2); eGFR > 60.00
[2025-03-26 12:55] LABS: Total Iron Binding Capacity 223 ug/dl (261-462)
[2025-03-26 13:02] LABS: Vitamin D, 25-OH*** 28.8 ng/mL (30-80)
[2025-03-26 13:20] LABS: Ferritin 869.0 ng/ml (17.9-464.0)
[2025-03-26 13:51] LABS: Folate 10.6 ng/ml (2.76-20); Vitamin B12 740 pg/ml (239-931)
== END ==
LOC: REG 11:18
PROVIDERS: ATTENDING PHYSICIAN Internal Medicine
DX: D64.9 Anemia, unspecified (principal); D72.829 Elevated white blood cell count, unspecified; R74.8 Abnormal levels of other serum enzymes; M85.80 Other specified disorders of bone density and structure, unspecified site
CPT/HCPCS: 36415; 80053; 82306; 82607; 82728; 82746; 82977; 83540; 83550; 85025

== ENCOUNTER → 2025-03-28 15:38 | Outpatient (REF) | payer OTHER, SELFPAY | LOC: RAD 15:38 | PROVIDERS: ATTENDING PHYSICIAN Internal Medicine | DX: R63.4 Abnormal weight loss (principal); R74.8 Abnormal levels of other serum enzymes; R63.0 Anorexia; R10.13 Epigastric pain; E11.69 Type 2 diabetes mellitus with other specified complication; D64.9 Anemia, unspecified | CPT/HCPCS: 74177; Q9967 ==

== ENCOUNTER → 2025-04-05 10:31 | Outpatient (REF) | payer OTHER, SELFPAY ==
[2025-04-05 11:47] LABS: Hematocrit 28.4 % (39.0-52.0); Hemoglobin 8.9 g/dL (13.0-18.0); Mean Corp Hgb Conc. 31.3 g/dL (33.0-37.0); Mean Corpuscular Volume 86.6 fL (80.0-94.0); Nucleated Red Blood Cells % 0 % (-); Platelet Count 456 10^3/uL (130-400); Red Cell Dist. Width 17.4 % (11.5-14.5); Reticulocyte Count 2.1 % (0.4-2.8)
[2025-04-05 12:04] LABS: ALT (SGPT) 25 U/L (0-50); AST (SGOT) 36 U/L (17-59); Albumin 3.5 g/dl (3.5-5.0); Alkaline Phosphatase 158 U/L (38-126); Blood Urea Nitrogen 15 mg/dl (9-20); Calcium 9.9 mg/dl (8.4-10.2); Carbon Dioxide 31 mmol/L (22-30); Chloride 96 mmol/L (98-107); Glucose 225 mg/dl (70-99); Iron 40 ug/dl (49-181); LDH 218 U/L (120-246); Potassium 4.0 mmol/L (3.5-5.1); Sodium 132 mmol/L (135-145); Total Protein 6.3 g/dl (6.3-8.2); eGFR > 60.00
[2025-04-05 12:14] LABS: Total Iron Binding Capacity 211 ug/dl (261-462)
[2025-04-05 12:41] LABS: Ferritin 910.0 ng/ml (17.9-464.0)
[2025-04-05 13:12] LABS: Folate 9.6 ng/ml (2.76-20); Vitamin B12 745 pg/ml (239-931)
[2025-04-05 18:59] LABS: Hepatitis B Surface Antigen Negative (Negative)
[2025-04-05 19:18] LABS: Hepatitis C Antibody Negative (Negative)
[2025-04-05 22:32] LABS: AFP Male/Tumor Marker 7.36 ng/ml
== END ==
LOC: REG 10:31
PROVIDERS: ATTENDING PHYSICIAN Internal Medicine Hematology & Oncology; FAMILY PHYSICIAN Internal Medicine
DX: C61 Malignant neoplasm of prostate (principal); C78.7 Secondary malignant neoplasm of liver and intrahepatic bile duct; D51.9 Vitamin B12 deficiency anemia, unspecified
CPT/HCPCS: 36415; 80053; 82105; 82607; 82728; 82746; 83010; 83540; 83550; 83615; 85025; 85045; 85652; 86704; 86706; 86803; 86880; 87340

== ENCOUNTER 2025-04-08 10:06 | Emergency (ER) | payer OTHER, SELFPAY ==
[2025-04-08 10:08] VITALS: BP 130/57
--- NOTE | 2025-04-08 10:36 | ED.GENMED ---
History of Present Illness
General
Chief Complaint: Bowel Problem
Source: patient and family
Exam Limitations: none
Time Seen by Provider: 04/08/25 10:16
Nursing documentation reviewed up to this point in time: agreed with
History of Present Illness
History of Present Illness:
Patient presents to ED secondary to lack of bowel movements over the past 1 week along with intermittent episodes of nausea and vomiting, despite taking rosj-fjv-[id number] medications. Denies fever or chills. Denies dizziness. However, patient has
had decreased oral intake and has noted generalized weakness. Denies abdominal pain. Denies recent change in medications or diet. Patient has had recent CT scan of abdomen pelvis, which had revealed lesion in his liver, which is being evaluated
as outpatient. Denies previous history of constipation. Patient has had recent weight loss. In addition, patient reports increased lower leg swelling along with increased urination at nighttime.
Past History
Past History
ED Past Medical History: GERD, HTN, NIDDM and Other (Peptic ulcer disease, pneumonia )
ED Past Surgical History: Appendectomy, Cholecystectomy and Other (Sinus surgery)
Social History
Tobacco: Non-smoker
Alcohol: None
Drug: None
Personal:
Employment: Employed
Family History
Family History: Other (longevity )
Review of Systems
Review of Systems
Allergies reviewed?: Yes
All Other Systems: ROS reviewed and negative except as documented in HPI and ROS
Constitutional: Reports no symptoms
Respiratory: Reports no symptoms; Denies trouble breathing
Cardiac: Reports no symptoms
ABD/GI: Reports nausea, vomiting and constipated; Denies abdominal pain
: Reports frequency
Musculoskeletal: Reports no symptoms
Skin: Reports no symptoms
Neurological: Reports weakness; Denies dizzy
Phy Exam
Physical Exam
Physical Exam:
Physical Exam
General: no apparent distress, not acutely ill. afebrile
Head: nc/at. eomi
Neck: supple. normal range of motion.
Heart: s1/s2 regular rate and rhythm
Lungs: no acute respiratory distress. clear bilaterally
Abdomen: normal bowel sounds. no distention. mild lower/periumbilical tenderness to palpation
Neuro: alert and oriented x 3. no focal neurological deficits
Skin: no rash
Psychiatric: well kept. interactive and cooperative
Extremities: LE b/l, nonpitting edema. no calf tenderness.
Course
Orders/Labs/Results
Orders:
Orders
04/08/25 10:33
CR Obstruct Series W/pa Chest Urgent
Comment:
Reason For Exam: abd pain with constipation
04/08/25 11:33
Basic Metabolic Panel Urgent
Complete Blood Count/With Diff Urgent
NT-proBNP Urgent
TSH Urgent
0.9% Sodium Chloride 500 ml [Nss] 500 ml IV BOLUS
04/08/25 12:40
Phosphate Enema [Fleet Phosphate Enema-Adult] 135 ml RECTAL NOW STA
Abnormal Lab Results
04/08/25
11:33
WBC 15.2 H 10^3/uL
(4.8-10.8)
RBC 3.16 L 10^6/uL
(4.70-6.10)
Hgb 8.5 L g/dL
(13.0-18.0)
Hct 26.8 L %
(39.0-52.0)
MCH 26.9 L pg
(27.0-31.0)
MCHC 31.7 L g/dL
(33.0-37.0)
RDW 18.2 H %
(11.5-14.5)
Abs Immat Gran (auto) 0.1 H 10^3/uL
(0-0.05)
Absolute Neuts (auto) 13.6 H 10^3/uL
(1.4-6.5)
Absolute Lymphs (auto) 0.5 L 10^3/uL
(1.2-3.4)
Absolute Monos (auto) 1.0 H 10^3/uL
(0.1-0.6)
Immature Gran % 0.9 H %
(0-0.5)
Neutrophils % 89.4 H %
(42.2-75.2)
Lymphocytes % 3.0 L %
(20.5-51.1)
Sodium 129 L mmol/L
(135-145)
Chloride 95 L mmol/L
(98-107)
Glucose 216 H mg/dl
(70-99)
04/08/25 11:33
04/08/25 11:33
Vital Signs
Initial and Last Documented VS:
Initial Vital Signs
Temp Pulse Resp BP Pulse Ox
98.3 F 104 22 130/57 97
04/08/25 10:08 04/08/25 10:08 04/08/25 10:08 04/08/25 10:08 04/08/25 10:08
Last Documented Vital Signs
Temp Pulse Resp BP Pulse Ox
98.6 F 92 18 128/65 98
04/08/25 11:36 04/08/25 12:19 04/08/25 12:19 04/08/25 12:19 04/08/25 12:19
MDM/Problems Addressed
MDM/Problems Addressed:
Pt reports moderate improvement in symptoms after successful disimpaction of hard stool, followed by administration of fleet enema. Pt subsequently with moderate bowel movement. Mild hyponatremia, which had happened previously, likely secondary to
decreased oral intake. 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 Patient's brother, who is a family physician, appears to be helping patient with
medical management at this time.
*Pulse Oximetry
SaO2: 97
Oxygen Mode of Delivery: Room air
Patient hypoxic: no
*Critical Care Note
Total Time (30-74mins, 75-104mins- exclusive of procedures): Not Applicable
ED Attending Note
-
Portions of this chart may have been created with voice recognition software.� Occasional wrong word or��sound alike� substitutions may have occurred due to the inherent limitations of voice recognition software.
Discharge Plan
Departure
Patient Disposition: Home (Routine Discharge)
Date of Disposition: 04/08/25
Time of Disposition: 14:34
Patient with high blood pressure during this ER visit?: Yes
Discharge Problem:
Constipation, Hyponatremia
Instructions: Hyponatremia, Constipation in adults - ED (DC)
Prescriptions:
No Action
amlodipine 5 MG tablet
5 mg PO DAILY
atorvastatin 40 MG tablet
40 mg PO HS
glipizide 10 MG tablet
5 mg PO DAILY
metformin 1,000 MG tablet
750 mg PO DAILY
Eliquis 5 MG tablet
5 mg PO BID
insulin glargine [Lantus Solostar U-100 Insulin] 100 unit/mL (3 mL) insulin pen
20 unit SC HS
sertraline 25 mg Tablet
75 mg PO HS
albuterol sulfate 90 mcg/actuation Hfa Aerosol Inhaler
2 puff INHALATION 6XD PRN (Reason: congestion)
acetaminophen 325 mg Tablet
650 mg PO Q4H PRN (Reason: pain/fever)
Januvia 100 mg Tablet
100 mg PO DAILY
sotalol 80 mg Tablet
80 mg PO BID Qty: 60 3RF
Referrals:
Martha March NP [Family Provider, Internal Medicine]
Activity Restrictions/Additional Instructions:
As discussed, please follow up with your primary care physician for continual evaluation and treatment
Interventions
Interventions:
*Risk Screen - Suicide Last Done: 04/08/25 10:08
*General Assessment Last Done: 04/08/25 10:08
*Neglect/Abuse Screening Last Done: 04/08/25 10:08
*ED- Fall Risk Assessment Last Done: 04/08/25 11:36
*ED COVID-19 Vaccine History Last Done: 04/08/25 11:36
*Nursing Disposition Last Done: 04/08/25 14:53
VH-Ftfwdw-Yxjmsxfmfh Assessment Last Done: 04/08/25 11:36
Discharge Date and Time
Discharge Date/Time: 04/08/25 14:55
Print Language: ANGUILLAN
[2025-04-08 11:32] VITALS: BP 150/63
[2025-04-08 11:35] VITALS: BMI 28.7
[2025-04-08 11:36] VITALS: BP 150/63
[2025-04-08 11:40] LABS: Hematocrit 26.8 % (39.0-52.0); Hemoglobin 8.5 g/dL (13.0-18.0); Mean Corp Hgb Conc. 31.7 g/dL (33.0-37.0); Mean Corpuscular Volume 84.8 fL (80.0-94.0); Nucleated Red Blood Cells % 0 % (-); Platelet Count 368 10^3/uL (130-400); Red Cell Dist. Width 18.2 % (11.5-14.5)
[2025-04-08 11:59] LABS: Blood Urea Nitrogen 19 mg/dl (9-20); Calcium 9.3 mg/dl (8.4-10.2); Carbon Dioxide 29 mmol/L (22-30); Chloride 95 mmol/L (98-107); Estimated Creatinine Clearance 76 ml/min; Glucose 216 mg/dl (70-99); Sodium 129 mmol/L (135-145); eGFR > 60.00
[2025-04-08 12:01] VITALS: BP 128/65
[2025-04-08] MEDS: NSS 500 IV (12:10)
[2025-04-08 12:19] VITALS: BP 128/65
[2025-04-08 12:27] LABS: TSH 3.33 uIU/ml (0.47-4.68)
[2025-04-08] MEDS: FLEET PHOSPHATE ENEMA-ADULT 135 ML RECTAL (13:10)
== END 2025-04-08 14:55 | disposition home or self-care (01) ==
LOC: EMR 10:06
PROVIDERS: EMERGENCY PHYSICIAN Emergency Medicine; FAMILY PHYSICIAN Internal Medicine
DX: K59.00 Constipation, unspecified (principal); E87.1 Hypo-osmolality and hyponatremia; K21.9 Gastro-esophageal reflux disease without esophagitis; I10 Essential (primary) hypertension; E11.9 Type 2 diabetes mellitus without complications; Z87.01 Personal history of pneumonia (recurrent); Z87.11 Personal history of peptic ulcer disease; Z90.49 Acquired absence of other specified parts of digestive tract
CPT/HCPCS: 99283; 96360; 74022; 80048; 83880; 84443; 85025

== ENCOUNTER → 2025-04-13 09:08 | Outpatient (REF) | payer OTHER, SELFPAY | LOC: PAVMRI 09:08 | PROVIDERS: ATTENDING PHYSICIAN Internal Medicine Hematology & Oncology; FAMILY PHYSICIAN Internal Medicine | DX: C78.7 Secondary malignant neoplasm of liver and intrahepatic bile duct (principal); C61 Malignant neoplasm of prostate | CPT/HCPCS: 74183; A9581 ==

== ENCOUNTER 2025-05-01 07:02 | Outpatient (REF) | payer OTHER, SELFPAY ==
[2025-05-01] VITALS (14 sets, daily range): BP systolic 101–152; BP diastolic 61–108; BMI 30.8
[2025-05-01 07:33] LABS: Hematocrit 30.7 % (39.0-52.0); Hemoglobin 9.0 g/dL (13.0-18.0); Mean Corp Hgb Conc. 29.3 g/dL (33.0-37.0); Mean Corpuscular Volume 90.0 fL (80.0-94.0); Nucleated Red Blood Cells % 0.2 % (-); Platelet Count 444 10^3/uL (130-400); Red Cell Dist. Width 19.6 % (11.5-14.5)
[2025-05-01 07:45] LABS: INR 1.21; PT 15.6 Sec (11.4-14.6)
[2025-05-01 08:25] LABS: Glucose - Point of Care 142 mg/dl (70-99)
[2025-05-01 09:30] LABS: Glucose - Point of Care 140 mg/dl (70-99)
[2025-05-01 10:46] LABS: Glucose - Point of Care 193 mg/dl (70-99)
== END 2025-05-01 12:30 | disposition home or self-care (01) ==
LOC: RADI 07:02
PROVIDERS: ATTENDING PHYSICIAN Internal Medicine Hematology & Oncology; FAMILY PHYSICIAN Internal Medicine; REFERRING PHYSICIAN Physician Assistant
DX: C22.0 Liver cell carcinoma (principal); D68.8 Other specified coagulation defects
CPT/HCPCS: 36415; 47000; 76942; 82962; 85025; 85610; 88307; 88333; 88341; 88342; 99152; 99153

== ENCOUNTER → 2025-05-07 10:30 | Outpatient (REF) | payer OTHER, SELFPAY ==
[2025-05-07 11:15] LABS: Hematocrit 30.7 % (39.0-52.0); Hemoglobin 8.9 g/dL (13.0-18.0); Mean Corp Hgb Conc. 29.0 g/dL (33.0-37.0); Mean Corpuscular Volume 90.0 fL (80.0-94.0); Nucleated Red Blood Cells % 0 % (-); Platelet Count 433 10^3/uL (130-400); Red Cell Dist. Width 19.3 % (11.5-14.5)
[2025-05-07 11:51] LABS: ALT (SGPT) 33 U/L (0-50); AST (SGOT) 70 U/L (17-59); Albumin 3.4 g/dl (3.5-5.0); Alkaline Phosphatase 267 U/L (38-126); Blood Urea Nitrogen 19 mg/dl (9-20); Calcium 9.5 mg/dl (8.4-10.2); Carbon Dioxide 27 mmol/L (22-30); Chloride 101 mmol/L (98-107); Glucose 178 mg/dl (70-99); Potassium 4.1 mmol/L (3.5-5.1); Sodium 136 mmol/L (135-145); Total Protein 6.2 g/dl (6.3-8.2); eGFR > 60.00
== END ==
LOC: REG 10:30
PROVIDERS: ATTENDING PHYSICIAN Internal Medicine
DX: R60.9 Edema, unspecified (principal); D64.9 Anemia, unspecified
CPT/HCPCS: 36415; 80053; 85025

== ENCOUNTER → 2025-05-17 10:27 | Outpatient (REF) | payer OTHER, SELFPAY ==
[2025-05-17 11:45] LABS: Albumin 3.5 g/dl (3.5-5.0); Blood Urea Nitrogen 21 mg/dl (9-20); Calcium 10.2 mg/dl (8.4-10.2); Carbon Dioxide 32 mmol/L (22-30); Chloride 104 mmol/L (98-107); Glucose 93 mg/dl (70-99); Potassium 4.5 mmol/L (3.5-5.1); Sodium 141 mmol/L (135-145); eGFR > 60.00
== END ==
LOC: REG 10:27
PROVIDERS: ATTENDING PHYSICIAN Internal Medicine Cardiovascular Disease; FAMILY PHYSICIAN Internal Medicine
DX: R60.0 Localized edema (principal)
CPT/HCPCS: 36415; 80069

== ENCOUNTER 2025-05-24 13:22 | Inpatient (IN) | payer OTHER, SELFPAY ==
[2025-05-24] VITALS (10 sets, daily range): BP systolic 125–144; BP diastolic 64–112; BMI 31.7; BMI 32.0
--- NOTE | 2025-05-24 10:31 | ED.GENMED ---
History of Present Illness
<Zeke Bhakta PA-C - Last Filed: 05/24/25 16:19>
General
Chief Complaint: Weakness
Source: patient and ambulance crew
Time Seen by Provider: 05/24/25 10:25
History of Present Illness
History of Present Illness:
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
evaluation of reported nausea and vomiting as well as patient noting that upon arrival here that he is felt confused since yesterday as well as difficulty speaking and a trouble seeing. Upon further clarification patient states that it seems that
his peripheral vision is fine but he is having a harder time seeing clearly centrally from both eyes. He denies any fevers, chills, rigors, chest pain or shortness of breath. Patient does not believe he is on any anticoagulation despite his
history of a. Patient does not believe he is currently getting any chemotherapy or radiation but does note he is supposed to be getting a procedure sometime in the near future for the liver but is having a difficult time expressing exactly what the
procedure is.
Past History
<Zeke Bhakta PA-C - Last Filed: 05/24/25 16:19>
Past History
ED Past Medical History: Arrthythmia, Cancer, GERD, HTN, NIDDM and Other (Peptic ulcer disease, pneumonia )
ED Past Surgical History: Appendectomy, Cholecystectomy and Other (Sinus surgery)
Social History
Tobacco: Non-smoker
Alcohol: None
Drug: None
Personal:
Living: with family
Employment: Employed
Family History
Family History: Other (longevity )
Review of Systems
<Zeke Bhakta PA-C - Last Filed: 05/24/25 16:19>
Review of Systems
All Other Systems: ROS reviewed and negative except as documented in HPI and ROS
Phy Exam
<Zeke Bhakta PA-C - Last Filed: 05/24/25 16:19>
Physical Exam
Physical Exam:
GENERAL: Alert , in no apparent distress
HEAD: Normocephalic atraumatic
EYE: pupils equal and reactive, 4mm bilateral, EOMI. When covering 1 eye patient reports improved visual deficit bilaterally
NECK: Supple
ENT: o/p clr, mmm.
CARDIAC: Regular rate and rhythm .
LUNGS: Clear breath sounds bilaterally, no acute respiratory distress, no wheezes/rales/rhonchi
ABDOMEN: Soft, without focal tenderness, no r/g, no cvat, (+)ascites
NEUROLOGICAL: Alert and oriented, no focal neuro deficits, JACOBS x 4 (patient reporting full generalized weakness), dysarthria noted, no facial droop
SKIN: Warm and dry, skin intact.
MUSCULOSKELETAL: (+) 1+ pitting edema to the knees, well perfused.
PSYCH: Normal and appropriate interaction.
Scores
<Zeke Bhakta PA-C - Last Filed: 05/24/25 16:19>
NIH Stroke Score
Level of Consciousness: 0 - Alert
LOC Questions: 0-Answers both correctly
LOC Commands: 0-Performs both correctly
Best Horizontal Gaze: 0-Normal
Visual Greene: 0=Normal, no visual loss
Facial Palsy: 0=Normal, symmetrical
Motor - Right Arm: 0=No drift 10 seconds
Motor - Left Arm: 0=No drift 10 seconds
Motor - Right Le-No drift 5 seconds
Motor - Left Le-No drift 5 seconds
Limb Ataxia: 0-Absent
Sensation: 0-Normal
Best Language: 0-No aphasia
Dysarthria: 2-Severe slurring
Extinction and Inattention: 0-No abnormality
NIH Total Score:: 2
Heart Failure Risk
Heart Failure Risk Score: Not Applicable
Heart Score for Chest Pain Patients
STEMI patient?: Not applicable
Withdrawal Assessment of Alcohol
Withdrawal Assessment Completed?: Not applicable
Course
<Zeke Bhakta PA-C - Last Filed: 05/24/25 16:19>
Orders/Labs/Results
Orders:
Orders
05/24/25 10:30
Electrocardiogram (*1) Urgent
Reason for Study: TIA/Stroke
CT Head W/o Iv Contrast Urgent
Comment:
Reason For Exam: dysarthria, vision changes
EKG- Treatment ONCE
05/24/25 10:55
Ammonia Urgent
Basic Metabolic Panel Urgent
CRP [C-Reactive Protein] Urgent
Complete Blood Count/With Diff Urgent
ESR [Erythrocyte Sed Rate] Urgent
Olazy-Yodq-Tmijvos Urgent
Magnesium Urgent
NT-proBNP Urgent
Comment: ADD ON
PTT Urgent
Prothrombin Time Urgent
05/24/25 11:38
Add On- LAB Urgent
Tests Added?: bmp
05/24/25 12:02
Dextrose 50%-Water [Dextrose 50% Syringe] 25 grams IV NOW STA
05/24/25 12:49
Admit/Transfer Patient As Directed
Co-Sign Provider:
Level of Care: Inpatient admission
Assign to:: Telemetry
Physician / Group: kb
Diagnosis: hypoglycemia
Reason for Telemetry: Arrhythmia
Date to Stop Telemetry: 05/27/25
Time to Stop Telemetry: 11:00
Reason for Hospitalization: hypoglycemia
Expected length of stay greater than two midnights?: Yes
ELOS- Estimated Length of Stay in days: 2
I certify the patient meets the requirements for IP care: Yes
Code Status As Directed
Resuscitation Status: Do not resuscitate
Reached after discussion with pt or family/Healthcare POA: Yes
PRN Pain Medication Management As Directed
May give lesser potent ordered pain med per pt: Yes
preference::
Protocol:: Medication orders for pain may be administered in a
manner that supports deferring to patient preference
when the pt is:
- Requesting an ordered lesser potent pain medication.
Least to most potent pain medications are defined
as: acetaminophen < NSAID < tramadol < opioids
(morphine, oxycodone, hydromorphone).
- Requesting a lesser dose of the same medication IF
ORDERED.
- Requesting a less intrusive route of administration
if both routes are prescribed by the provider (PO <
IV).
05/24/25 12:50
DNR Bracelet Application ONCE
05/24/25 12:52
Urinalysis Reflex To Culture Urgent
CR Chest - 2 Views Urgent
Comment:
Reason For Exam: SOB
US Abdomen Complete/Upper Urgent
Comment:
Reason For Exam: transaminitis, ascites
05/24/25 12:53
Add On- LAB Routine
Tests Added?: bnp
05/24/25 13:00
Blood Culture Q30M
CHASIDY Source: Blood/Venous
Specimen Description:
Dextrose 10%/Water 1000 ml [D10w] 1,000 ml IV 50 mls/hr
05/24/25 13:30
Blood Culture Q30M
CHASIDY Source: Blood/Venous
Specimen Description:
05/24/25 14:45
Albuterol [ProAIR HFA INHALER] 2 puff INH R Q4HPRN PRN sob/wheezing
Dextrose 50%-Water [Dextrose 50% Syringe] 12.5 grams IV Q15ODIS PRN
Glucagon [GlucaGen] 1 mg IM PRN PRN
Lorazepam [Ativan] 0.5 mg PO DAILYPRN PRN prior to mri
Ondansetron Injectable [Zofran] 4 mg IV Q6HPRN PRN
05/24/25 14:45
VTE Contraindication Routine
VTE Mechanical Device Contraindication: Medical Contraindication
Pharmocologic Contraindication: Medical Contraindication
Activity As Directed
Activity Level: As Tolerated
Bedside Glucose Monitoring As Directed
Frequency: AC&HS
Additional Instructions:: Change to q6h if pt on TPN, tube feeding or not eating
Vital Signs As Directed
Frequency: Per unit guidelines
05/24/25 Dinner
Regular
At Your Request: Full Participation
Does patient need a safe tray?: No
05/24/25 16:30
Insulin Aspart Corrective Low [Novolog Flexpen-Low Resistance] See Protocol SC AC
05/24/25 18:00
Tamsulosin [Flomax] 0.4 mg PO QPM
05/24/25 20:00
Enoxaparin Sodium [Lovenox] 80 mg SC Q12H
Sotalol [Betapace] 40 mg PO BID
05/24/25 22:00
Sertraline HCl [Zoloft] 100 mg PO HS
05/25/25 06:00
Complete Blood Count/With Diff IN AM
Comprehensive Metabolic Panel IN AM
Glycohemoglobin (HgbA1c) IN AM
05/25/25 08:00
Bumetanide [Bumex] 0.5 mg PO DAILY
Pantoprazole [Protonix] 40 mg PO DAILY
05/27/25 11:00
DC Protocol for Telemetry ONCE
Abnormal Lab Results
05/24/25 05/24/25 05/24/25
10:55 12:03 12:17
WBC 16.5 H 10^3/uL
(4.8-10.8)
RBC 4.68 L 10^6/uL
(4.70-6.10)
Hgb 12.3 L g/dL
(13.0-18.0)
MCH 26.3 L pg
(27.0-31.0)
MCHC 29.4 L g/dL
(33.0-37.0)
RDW 19.7 H %
(11.5-14.5)
Plt Count 446 H 10^3/uL
(130-400)
Abs Immat Gran (auto) 0.1 H 10^3/uL
(0-0.05)
Absolute Neuts (auto) 14.5 H 10^3/uL
(1.4-6.5)
Absolute Lymphs (auto) 0.7 L 10^3/uL
(1.2-3.4)
Absolute Monos (auto) 1.1 H 10^3/uL
(0.1-0.6)
Immature Gran % 0.7 H %
(0-0.5)
Neutrophils % 87.9 H %
(42.2-75.2)
Lymphocytes % 4.4 L %
(20.5-51.1)
ESR 49 H mm/hour
(0-20)
PT 17.7 H Sec
(11.4-14.6)
APTT 44.2 H Sec
(23.4-35.0)
BUN 26 H mg/dl
(9-20)
Glucose < 30 L* mg/dl
(70-99)
Magnesium 2.4 H mg/dl
(1.6-2.3)
Total Bilirubin 1.4 H mg/dl
(0.2-1.3)
Direct Bilirubin 0.8 H mg/dl
(0.0-0.4)
AST 291 H U/L
(17-59)
ALT 129 H U/L
(0-50)
Alkaline Phosphatase 575 H U/L
(38-126)
Ammonia < 9 L umol/L
(9-30)
C-Reactive Protein 149.30 H mg/L
(0.0-10.00)
POC Glucose 42 L* mg/dl 141 H mg/dl
(70-99) (70-99)
05/24/25 05/24/25
12:27 13:01
WBC
RBC
Hgb
MCH
MCHC
RDW
Plt Count
Abs Immat Gran (auto)
Absolute Neuts (auto)
Absolute Lymphs (auto)
Absolute Monos (auto)
Immature Gran %
Neutrophils %
Lymphocytes %
ESR
PT
APTT
BUN
Glucose
Magnesium
Total Bilirubin
Direct Bilirubin
AST
ALT
Alkaline Phosphatase
Ammonia
C-Reactive Protein
POC Glucose 174 H mg/dl 107 H mg/dl
() ()
05/24/25 10:55
05/24/25 10:55
Vital Signs
Initial and Last Documented VS:
Initial Vital Signs
Temp Pulse Resp BP Pulse Ox
95.9 F L 86 18 136/112 95
05/24/25 10:26 05/24/25 10:26 05/24/25 10:26 05/24/25 10:26 05/24/25 10:26
Last Documented Vital Signs
Temp Pulse Resp BP Pulse Ox
97.4 F 93 16 144/83 96
05/24/25 15:30 05/24/25 15:30 05/24/25 15:30 05/24/25 15:30 05/24/25 15:30
<Daniel Martell, DO - Last Filed: 05/24/25 10:37>
Orders/Labs/Results
Orders:
Orders
05/24/25 10:30
Electrocardiogram (*1) Urgent
Reason for Study: TIA/Stroke
CT Head W/o Iv Contrast Urgent
Comment:
Reason For Exam: dysarthria, vision changes
EKG- Treatment ONCE
05/24/25 10:55
Ammonia Urgent
Basic Metabolic Panel Urgent
CRP [C-Reactive Protein] Urgent
Complete Blood Count/With Diff Urgent
ESR [Erythrocyte Sed Rate] Urgent
Agftj-Mees-Jvmfkhd Urgent
Magnesium Urgent
NT-proBNP Urgent
Comment: ADD ON
PTT Urgent
Prothrombin Time Urgent
05/24/25 11:38
Add On- LAB Urgent
Tests Added?: bmp
05/24/25 12:02
Dextrose 50%-Water [Dextrose 50% Syringe] 25 grams IV NOW STA
05/24/25 12:49
Admit/Transfer Patient As Directed
Co-Sign Provider:
Level of Care: Inpatient admission
Assign to:: Telemetry
Physician / Group: kb
Diagnosis: hypoglycemia
Reason for Telemetry: Arrhythmia
Date to Stop Telemetry: 05/27/25
Time to Stop Telemetry: 11:00
Reason for Hospitalization: hypoglycemia
Expected length of stay greater than two midnights?: Yes
ELOS- Estimated Length of Stay in days: 2
I certify the patient meets the requirements for IP care: Yes
Code Status As Directed
Resuscitation Status: Do not resuscitate
Reached after discussion with pt or family/Healthcare POA: Yes
PRN Pain Medication Management As Directed
May give lesser potent ordered pain med per pt: Yes
preference::
Protocol:: Medication orders for pain may be administered in a
manner that supports deferring to patient preference
when the pt is:
- Requesting an ordered lesser potent pain medication.
Least to most potent pain medications are defined
as: acetaminophen < NSAID < tramadol < opioids
(morphine, oxycodone, hydromorphone).
- Requesting a lesser dose of the same medication IF
ORDERED.
- Requesting a less intrusive route of administration
if both routes are prescribed by the provider (PO <
IV).
05/24/25 12:50
DNR Bracelet Application ONCE
05/24/25 12:52
Urinalysis Reflex To Culture Urgent
CR Chest - 2 Views Urgent
Comment:
Reason For Exam: SOB
US Abdomen Complete/Upper Urgent
Comment:
Reason For Exam: transaminitis, ascites
05/24/25 12:53
Add On- LAB Routine
Tests Added?: bnp
05/24/25 13:00
Blood Culture Q30M
CHASIDY Source: Blood/Venous
Specimen Description:
Dextrose 10%/Water 1000 ml [D10w] 1,000 ml IV 50 mls/hr
05/24/25 13:30
Blood Culture Q30M
CHASIDY Source: Blood/Venous
Specimen Description:
05/24/25 14:45
Albuterol [ProAIR HFA INHALER] 2 puff INH R Q4HPRN PRN sob/wheezing
Dextrose 50%-Water [Dextrose 50% Syringe] 12.5 grams IV [id number] PRN
Glucagon [GlucaGen] 1 mg IM PRN PRN
Lorazepam [Ativan] 0.5 mg PO DAILYPRN PRN prior to mri
Ondansetron Injectable [Zofran] 4 mg IV Q6HPRN PRN
05/24/25 14:45
VTE Contraindication Routine
VTE Mechanical Device Contraindication: Medical Contraindication
Pharmocologic Contraindication: Medical Contraindication
Activity As Directed
Activity Level: As Tolerated
Bedside Glucose Monitoring As Directed
Frequency: AC&HS
Additional Instructions:: Change to q6h if pt on TPN, tube feeding or not eating
Vital Signs As Directed
Frequency: Per unit guidelines
05/24/25 Dinner
Regular
At Your Request: Full Participation
Does patient need a safe tray?: No
05/24/25 16:30
Insulin Aspart Corrective Low [Novolog Flexpen-Low Resistance] See Protocol SC AC
05/24/25 18:00
Tamsulosin [Flomax] 0.4 mg PO QPM
05/24/25 20:00
Enoxaparin Sodium [Lovenox] 80 mg SC Q12H
Sotalol [Betapace] 40 mg PO BID
05/24/25 22:00
Sertraline HCl [Zoloft] 100 mg PO HS
05/25/25 06:00
Complete Blood Count/With Diff IN AM
Comprehensive Metabolic Panel IN AM
Glycohemoglobin (HgbA1c) IN AM
05/25/25 08:00
Bumetanide [Bumex] 0.5 mg PO DAILY
Pantoprazole [Protonix] 40 mg PO DAILY
05/27/25 11:00
DC Protocol for Telemetry ONCE
Abnormal Lab Results
05/24/25 05/24/25 05/24/25
10:55 12:03 12:17
WBC 16.5 H 10^3/uL
(4.8-10.8)
RBC 4.68 L 10^6/uL
(4.70-6.10)
Hgb 12.3 L g/dL
(13.0-18.0)
MCH 26.3 L pg
(27.0-31.0)
MCHC 29.4 L g/dL
(33.0-37.0)
RDW 19.7 H %
(11.5-14.5)
Plt Count 446 H 10^3/uL
(130-400)
Abs Immat Gran (auto) 0.1 H 10^3/uL
(0-0.05)
Absolute Neuts (auto) 14.5 H 10^3/uL
(1.4-6.5)
Absolute Lymphs (auto) 0.7 L 10^3/uL
(1.2-3.4)
Absolute Monos (auto) 1.1 H 10^3/uL
(0.1-0.6)
Immature Gran % 0.7 H %
(0-0.5)
Neutrophils % 87.9 H %
(42.2-75.2)
Lymphocytes % 4.4 L %
(20.5-51.1)
ESR 49 H mm/hour
(0-20)
PT 17.7 H Sec
(11.4-14.6)
APTT 44.2 H Sec
(23.4-35.0)
BUN 26 H mg/dl
(9-20)
Glucose < 30 L* mg/dl
(70-99)
Magnesium 2.4 H mg/dl
(1.6-2.3)
Total Bilirubin 1.4 H mg/dl
(0.2-1.3)
Direct Bilirubin 0.8 H mg/dl
(0.0-0.4)
AST 291 H U/L
(17-59)
ALT 129 H U/L
(0-50)
Alkaline Phosphatase 575 H U/L
(38-126)
Ammonia < 9 L umol/L
(9-30)
C-Reactive Protein 149.30 H mg/L
(0.0-10.00)
POC Glucose 42 L* mg/dl 141 H mg/dl
() ()
05/24/25 05/24/25
12:27 13:01
WBC
RBC
Hgb
MCH
MCHC
RDW
Plt Count
Abs Immat Gran (auto)
Absolute Neuts (auto)
Absolute Lymphs (auto)
Absolute Monos (auto)
Immature Gran %
Neutrophils %
Lymphocytes %
ESR
PT
APTT
BUN
Glucose
Magnesium
Total Bilirubin
Direct Bilirubin
AST
ALT
Alkaline Phosphatase
Ammonia
C-Reactive Protein
POC Glucose 174 H mg/dl 107 H mg/dl
() ()
05/24/25 10:55
05/24/25 10:55
Vital Signs
Initial and Last Documented VS:
Initial Vital Signs
Temp Pulse Resp BP Pulse Ox
95.9 F L 86 18 136/112 95
05/24/25 10:26 05/24/25 10:26 05/24/25 10:26 05/24/25 10:26 05/24/25 10:26
Last Documented Vital Signs
Temp Pulse Resp BP Pulse Ox
97.4 F 93 16 144/83 96
05/24/25 15:30 05/24/25 15:30 05/24/25 15:30 05/24/25 15:30 05/24/25 15:30
<Zeke Bhakta PA-C - Last Filed: 05/24/25 16:19>
MDM/Problems Addressed
Differential Diagnosis Includes:
Hepatic/metabolic encephalopathy
CVA
Malignancy/worsening mets
Electrolyte imbalance
SBP
Anemia
Dehydration
MDM/Problems Addressed:
79-year-old male presenting to the ER for evaluation of nausea and vomiting, dysarthria and visual disturbance, symptoms ongoing for at least 24 hours. No stroke alert called as patient is not a TNK candidate. Patient is also not an IAT candidate
but will order CT of the head to further evaluate. Also have high degree of suspicion for hepatic encephalopathy given known liver metastases. Patient currently not on any anticoagulant medication, noted history for paroxysmal A-fib. Labs, head
CT, EKG ordered. Anticipate admission.
Chronic conditions affecting care: Arrhythmia and Cancer
<Zeke Bhakta PA-C - Last Filed: 05/24/25 16:19>
*Radiology
Radiology exam reviewed: radiology read reviewed (No acute infarcts, chronic ischemic disease)
*Pulse Oximetry
SaO2: 98
Oxygen Mode of Delivery: Room air
Patient hypoxic: no
*Critical Care Note
Total Time (30-74mins, 75-104mins- exclusive of procedures): 30
comment:
Critical care statement: A total of 30 minutes of critical care time was provided for this patient. This includes management of unstable vital signs, evaluation of the patient at bedside, reviewing the patient's pertinent medical records, discussion
with consultants, review of old EKGs and review of pertinent medical records. This time with separate from time utilized to perform the aforementioned documented procedures
<Zeke Bhakta PA-C - Last Filed: 05/24/25 16:19>
Patient Management
Discussion with other providers: Hospitalist
Escalation/DeEscalation of care consider admission/obs:
Patient's lab showed a glucose less than 30, treated immediately with 25 g dextrose with good response to glucose greater than 170. Patient does take insulin for his diabetes, possible patient took too much given his nausea vomiting and diarrhea.
He asked that I overdosed on insulin. Upon giving the patient the dextrose his speech did improve slightly however still with somewhat garbled speech and quite tired. Hospitalist team to admit. Will hold off on any antiplatelet medications given
patient is on Lovenox already and unclear etiology for his abnormal speech but hypoglycemia was a likely contributing factor.
ED Attending Note
<Zeke Bhakta PA-C - Last Filed: 05/24/25 16:19>
-
Portions of this chart may have been created with voice recognition software.� Occasional wrong word or��sound alike� substitutions may have occurred due to the inherent limitations of voice recognition software.
<Daniel Martell DO - Last Filed: 05/24/25 10:37>
ED Attending Note
Patient seen and examined by attending physician: Yes
I performed the substantive portion of visit, reviewed & personally made and approve the management plan that is documented in note by myself or ORVILLE.: Yes
ED Attending Note:
I have seen and evaluated the patient with a [id number] encounter. I have spoken to the advance practicer provider and involved in the medical history, the physical exam, medical decision making.
Evaluation and management service: agree unless noted differently below.
Results interpretation: agree unless noted differently below.
Focused HPI: 79-year-old male presenting with double vision and trouble speaking. He noted the symptoms yesterday. Patient denies any headache
Physical exam: Flat affect. EOMI. Mild dysarthria noted. Mildly distended abdomen which is nontender
Medical Decision Making: Will workup for hepatic encephalopathy versus metabolic abnormality versus stroke. Will obtain CT head and basic blood work. Patient is not a TNK candidate given duration of symptoms. Will ultimately admit
Discharge Plan
Departure
Patient Disposition: Admit
Date of Disposition: 05/24/25
Time of Disposition: 12:24
Presentation/result/management discussed w/ accepting MD/DO: Hospitalist
Discharge Problem:
Hypoglycemia, Ascites, Altered mental status
Interventions
Interventions:
*Risk Screen - Suicide Last Done: 05/24/25 15:10
*General Assessment Last Done: 05/24/25 10:26
*Neglect/Abuse Screening Last Done: 05/24/25 10:54
*ED- Fall Risk Assessment Last Done: 05/24/25 10:26
*ED COVID-19 Vaccine History Last Done: 05/24/25 15:10
*ED Influenza Vaccine History Last Done: 05/24/25 10:26
*Nursing Disposition Last Done: 05/24/25 13:47
ED- Cardiac Assessment Last Done: 05/24/25 10:26
ED- Neurological Assessment Last Done: 05/24/25 10:26
ED- Pulmonary Assessment Last Done: 05/24/25 10:26
Discharge Date and Time
Discharge Date/Time: 05/24/25 13:48
[2025-05-24 11:06] LABS: Hematocrit 41.8 % (39.0-52.0); Hemoglobin 12.3 g/dL (13.0-18.0); Mean Corp Hgb Conc. 29.4 g/dL (33.0-37.0); Mean Corpuscular Volume 89.3 fL (80.0-94.0); Nucleated Red Blood Cells % 0 % (-); Platelet Count 446 10^3/uL (130-400); Red Cell Dist. Width 19.7 % (11.5-14.5)
[2025-05-24 11:16] LABS: Ammonia < 9 umol/L (9-30)
[2025-05-24 11:20] LABS: INR 1.40; PT 17.7 Sec (11.4-14.6)
[2025-05-24 11:21] LABS: APTT 44.2 Sec (23.4-35.0)
[2025-05-24 11:36] LABS: ALT (SGPT) 129 U/L (0-50); AST (SGOT) 291 U/L (17-59); Albumin 3.5 g/dl (3.5-5.0); Alkaline Phosphatase 575 U/L (38-126); Magnesium 2.4 mg/dl (1.6-2.3); Total Protein 6.4 g/dl (6.3-8.2)
[2025-05-24 11:57] LABS: C-Reactive Protein 149.30 mg/L (0.0-10.00)
[2025-05-24 12:04] LABS: Glucose - Point of Care 42 mg/dl (70-99)
[2025-05-24] MEDS: DEXTROSE 50% SYRINGE 25 GRAMS IV (12:04)
[2025-05-24 12:09] LABS: Blood Urea Nitrogen 26 mg/dl (9-20); Calcium 10.2 mg/dl (8.4-10.2); Carbon Dioxide 28 mmol/L (22-30); Chloride 102 mmol/L (98-107); Estimated Creatinine Clearance 62 ml/min; Glucose < 30 mg/dl (70-99); Potassium 4.3 mmol/L (3.5-5.1); Sodium 137 mmol/L (135-145); eGFR > 60.00
[2025-05-24] MEDS: D10W 1000 IV ×2 (12:12→21:31)
[2025-05-24 12:19] LABS: Glucose - Point of Care 141 mg/dl (70-99)
[2025-05-24 12:28] LABS: Glucose - Point of Care 174 mg/dl (70-99)
--- NOTE | 2025-05-24 12:56 | HPS.HSE ---
Family Physician
-
Family Physician: NOT KNOW UNKNOWN - PT DOES
Chief Complaint
-
confusion
History of Present Illness
79-year-old male past medical history of paroxysmal atrial fibrillation, moderate mitral regurgitation, CAD, essential hypertension, prior TIA, type 2 diabetes, asthma, prostate cancer status post radiation, recently diagnosed liver cancer with
local metastasis and extension of clot into the IVC on Lovenox presenting with decreased p.o. intake, nausea and vomiting, intermittent diarrhea and generalized weakness for the past several days. He has also been having abdominal pain and
distention.
This morning he had double vision, slurred speech and confusion which is now resolved.
He was recently diagnosed with liver cancer with local metastases and extension of clot into the IVC and sees Dr. Richardson. He has not started treatment yet.
He has been having shortness of breath with exertion and ongoing cough.
His blood sugars have been volatile up to 500s. He took 35 units of Lantus instead of his usual 20 last night. Because of vomiting last night he did not eat anything.
He has also been having increased bilateral lower extremity edema.
His grandmother had colon cancer.
He does not smoke or drink alcohol or use drugs.
Medical History
Past Medical History
Past Medical History: Reports Other (paroxysmal atrial fibrillation, moderate mitral regurgitation, CAD, essential hypertension, prior TIA, type 2 diabetes, asthma, prostate cancer status post radiation, recently diagnosed liver cancer with local
metastasis and extension of clot into the IVC on Lovenox )
Past Surgical History: Reports Other (Appendectomy, Cholecystectomy and Other (Sinus surgery))
Social History
Tobacco: Non-smoker
Alcohol: None
Drug: None
Family History
Family History: Not pertinent
Allergies / Home Medications
Allergies reflects when Allergies were last updated in [facility].
Home Medications with original date entered in [facility]
Allergy/Medication List:
Allergies
Allergy/AdvReac Type Severity Reaction Status Date / Time
cefaclor Allergy hives;erin Verified 04/08/25 10:08
ing
lisinopril Allergy cough Verified 04/08/25 10:08
oxycodone (From OxyContin) Allergy violent Verified 04/08/25 10:08
dreams,
jumpy,
nervous
penicillin V Allergy Unknown Verified 04/08/25 10:08
Penicillins Allergy hives;swemary Verified 04/08/25 10:08
ing
Home Medications
atorvastatin 40 mg tablet 40 mg PO HS 05/20/21
insulin glargine 100 unit/mL (3 mL) subcutaneous pen (Lantus Solostar U-100 Insulin) 20 unit SC HS 07/13/24
sertraline 25 mg tablet 100 mg PO HS 07/13/24
albuterol sulfate 90 mcg/actuation aerosol inhaler (Ventolin HFA) 2 puff inhalation R Q4HPRN PRN sob/wheezing 04/30/25
lorazepam 0.5 mg tablet 0.5 mg PO DAILYPRN PRN prior to mri 04/30/25
pantoprazole 40 mg tablet,delayed release 40 mg PO DAILY 04/30/25
enoxaparin 80 mg/0.8 mL subcutaneous syringe (Lovenox) 80 mg SC Q12H 05/01/25
bumetanide 0.5 mg tablet 0.5 mg PO DAILY 05/24/25
empagliflozin 10 mg tablet (Jardiance) 10 mg PO DAILY 05/24/25
metoclopramide HCl 5 mg tablet 5 mg PO BID 05/24/25
sotalol 80 mg tablet 40 mg PO BID 05/24/25
tamsulosin 0.4 mg capsule 0.4 mg PO QPM 05/24/25
Review of Systems
-
History Source: Patient
A 12 point ROS was completed and negative except as noted: Yes
Constitutional: Reports No Symptoms
EENT: Reports No Symptoms
Respiratory: Reports See HPI
Cardiac: Reports No Symptoms
Abdomen/GI: Reports See HPI
: Reports No Symptoms
Musculoskeletal: Reports No Symptoms
Skin: Reports No Symptoms
Neurological: Reports No Symptoms
Endocrine: Reports No Symptoms
Hematologic/Lymphatic: Reports No Symptoms
Psych: Reports No Symptoms
Physical Exam
Vital Signs
Vital Signs
Temp Pulse Resp BP Pulse Ox
95.9 F L 82 19 131/92 96
05/24/25 10:26 05/24/25 12:00 05/24/25 12:00 05/24/25 12:00 05/24/25 12:00
Physical Exam
General: Well Developed, Well Nourished and No Apparent Distress
HEENT: NormoCephalic, Moist mucous membranes and Atraumatic
Respiratory: Clear
Cardiac: S1/S2 and Regular Rhythm; No Murmur or Rub
GI: Soft, Non Distended, Normal Bowel Sounds and Tender (diffusely ); No Organomegaly
Rectal: Deferred by Provider
Musculoskeletal: No Clubbing, No Cyanosis and No Edema
Skin: No Rash
Neuro: Nonfocal/grossly intact
Laboratory Results
-
05/24/25 10:55
05/24/25 10:55
Laboratory Results
PT 17.7 Sec (11.4-14.6) H 05/24/25 10:55
INR 1.40 05/24/25 10:55
APTT 44.2 Sec (23.4-35.0) H 05/24/25 10:55
Total Bilirubin 1.4 mg/dl (0.2-1.3) H 05/24/25 10:55
AST 291 U/L (17-59) H 05/24/25 10:55
ALT 129 U/L (0-50) H 05/24/25 10:55
Alkaline Phosphatase 575 U/L (38-126) H 05/24/25 10:55
Data Reviewed
-
Lab Data: Labs Reviewed by me
Old Records: Reviewed
Impression/Plan
-
IMPRESSION:
PLAN:
# Symptomatic hypoglycemia secondary to increased Lantus
# Volatile blood sugars
# Type 2 diabetes
-Hold Jardiance and Lantus 20 units
- Blood sugar less than 30
- D10 drip
- Check A1c
- Insulin sliding scale
# Acute metabolic encephalopathy/hypothermia secondary to hypoglycemia
- Ammonia level negative
- CT head shows mild changes of cortical atrophy and chronic ischemic disease without acute findings
- Metabolic encephalopathy and double vision now resolved
# Transaminitis secondary to liver cancer
-Ammonia level negative
-INR 1.4
- Check liver ultrasound
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
- Continue Lovenox
- Check abdominal ultrasound to evaluate for ascites
# Leukocytosis likely secondary to liver cancer
-Elevated inflammatory markers secondary to malignancy
- Check urinalysis, chest x-ray, abdominal ultrasound to evaluate for source of infection
- Check blood cultures
# Exertional dyspnea
- Check chest x-ray and cardiac BNP given history of moderate mitral regurgitation
# Bilateral lower extremity edema secondary to liver cancer
- Continue Bumex
Paroxysmal atrial fibrillation
- Continue Lovenox
- Continue sotalol
Essential hypertension
- Continue amlodipine
Moderate mitral regurgitation
Presumed CAD
Prior TIA
- Continue statin
Asthma
- Continue albuterol
Prostate cancer status post radiation
- Continue tamsulosin
Anxiety/depression
- Continue sertraline
- Continue Ativan
History of GERD/peptic ulcer
- Continue Protonix
DNR/DNI
DVT prophylaxis�Lovenox
Regular diet
[2025-05-24 13:02] LABS: Glucose - Point of Care 107 mg/dl (70-99)
--- NOTE | 2025-05-24 13:14 | HOSPNOTE ---
Spoke with daughter and discussed hospice and the philosophy. The daughter wanted my direct contact information when patient is discharged may consider hospice.
--- NOTE | 2025-05-24 14:17 | CM ---
Patient seen in ED with brother present. Patient brother states that patient lives with daughter in a 2 story home, patient has first floor set up. Patient PCP is Dr. Martha March and he uses the [facility] on [facility] [address], [place]. Patient brother
physician and poa along with daughter. Patient brother indicated that he was anticipating discussion of goals when more information was available. Patient has 01/03 caregivers Milo Lehman [phone] at home. Patient is current with [facility] per patient
per brother. CM will continue to follow for discharge planning needs.
Plan; home with home health; [facility] vs hospice as per daughter discussion with [facility] hospice.
[2025-05-24 14:59] LABS: Glucose - Point of Care 72 mg/dl (70-99)
--- NOTE | 2025-05-24 16:15 | TRANSFER ---
Patient arrived from ultrasound--brother and daughter at the bedside. D10 running at 50 ml/hr. Blood sugar upon arrival 72--apple juice administered. Hypoglycemia protocol not initiated due to blood sugar being >70. Skin check completed. Q 2hour
turns initiated. Patient is on a foam mattress. Per patient, he is predominantly WC bound at home due to progressive weakness and frequent falls. Admission questions completed by patient and his brother, Lauro. DNR bracelet placed. Patient oriented
to his room. All needs met. Call kamara and personal belongings within reach. Family to remain at bedside.
[2025-05-24 16:48] LABS: Glucose - Point of Care 127 mg/dl (70-99)
[2025-05-24] MEDS: TYLENOL 650 MG PO ×2 (17:56→23:58)
[2025-05-24] MEDS: FLOMAX 0.4 MG PO (17:56)
[2025-05-24] MEDS: BETAPACE 40 MG PO (20:14)
[2025-05-24] MEDS: LOVENOX 80 MG SC (20:14)
[2025-05-24] MEDS: ZOLOFT 100 MG PO (21:28)
[2025-05-24 21:37] LABS: Glucose - Point of Care 195 mg/dl (70-99)
[2025-05-24] MEDS: ZOFRAN 4 MG IV (21:55)
[2025-05-24 22:26] LABS: Urine Character Clear (Clear)
[2025-05-24 22:49] LABS: Urine Red Blood Cell 0-2 /HPF (0-2); Urine White Cell 0-2 /HPF (0-5)
[2025-05-25 03:00] VITALS: BP 134/68
[2025-05-25 03:52] LABS: Glucose - Point of Care 125 mg/dl (70-99)
[2025-05-25] MEDS: ZOFRAN 4 MG IV (04:00)
[2025-05-25] MEDS: MORPHINE SULFATE 2 MG IV ×4 (05:30→21:12)
[2025-05-25] MEDS: COMPAZINE 5 MG IV ×3 (05:32→18:08)
[2025-05-25 07:05] LABS: ALT (SGPT) 245 U/L (0-50); AST (SGOT) 526 U/L (17-59); Albumin 2.8 g/dl (3.5-5.0); Alkaline Phosphatase 632 U/L (38-126); Blood Urea Nitrogen 28 mg/dl (9-20); Calcium 9.4 mg/dl (8.4-10.2); Carbon Dioxide 28 mmol/L (22-30); Chloride 100 mmol/L (98-107); Estimated Creatinine Clearance 56 ml/min; Glucose 125 mg/dl (70-99); Potassium 3.9 mmol/L (3.5-5.1); Sodium 133 mmol/L (135-145); Total Protein 5.4 g/dl (6.3-8.2); eGFR > 60.00
[2025-05-25 07:06] LABS: Hematocrit 34.3 % (39.0-52.0); Hemoglobin 9.9 g/dL (13.0-18.0); Mean Corp Hgb Conc. 28.9 g/dL (33.0-37.0); Mean Corpuscular Volume 91.7 fL (80.0-94.0); Nucleated Red Blood Cells % 0.1 % (-); Platelet Count 346 10^3/uL (130-400); Red Cell Dist. Width 19.2 % (11.5-14.5)
[2025-05-25] MEDS: D5/0.9% SODIUM CHLORIDE 1000 IV ×2 (07:56→21:14)
[2025-05-25] MEDS: PROTONIX 40 MG PO (07:57)
[2025-05-25] MEDS: LOVENOX 80 MG SC ×2 (07:57→21:07)
[2025-05-25] MEDS: BUMEX 0.5 MG PO (08:02)
[2025-05-25] MEDS: BETAPACE 40 MG PO ×2 (08:03→21:07)
[2025-05-25 08:04] VITALS: BP 141/71
[2025-05-25 08:11] LABS: Glucose - Point of Care 129 mg/dl (70-99)
[2025-05-25 09:09] LABS: Glycohemoglobin (HgbA1c) 6.9 % (4.0-5.6)
--- NOTE | 2025-05-25 09:53 | CON.GI ---
Addendum entered and electronically signed by Cindy Booker, 05/25/25 15:25:
Dr. Bolden updated GI that patient has made the decision to go on hospice. Will sign off, please call if GI can be of further assistance.
Addendum entered and electronically signed by Cindy Booker, 05/25/25 13:12:
The patient was seen and examined by me independently in collaboration with the nurse practitioner.
Past medical history/social history/medications/allergies/family history reviewed.
Lab data and imaging data reviewed.
Hussain Solorzano is an 79 y.o. gentleman with pmhs barretts esophagus, PUD, h.pylori, recent diagnosis of pafib in 02/2025 on eliquis and sotalol, hx TIA, CAD, mild to moderate MR, hx of prostate Ca s/p radiation therapy and newly diagnosed
hepatocellular carcinoma admitted with Nause, vomiting, weakness and change in mental status, found to be hypoglycemic. Mental status improved with correction of glucose levels. His brother who is a family medicine doctor in [place] was at the
bedside at time of evaluation, stated his blood sugar level was over 500, instructed him to give additional insulin, which then led to his hypoglycemia. Patient endorses weakness and difficulty walking due to significant LE edema in addition to
nausea and decreased appetite over the last 3 weeks. He did have some diarrhea which seems ot have resolved, he had 1 episode yesterday and no BMs since admission. No recent antibiotics.
His PCP ordered a CT Scan for workup of nausea, found to have a 12 cm hepatic mass. MRI abdomen showed large heterogenous mass in the superior right hepatic lobe with contiguous tumor thrombus in the IVC. 2x smaller satellite lesions int he inferior
right hepatic lobe. Bulky portocaval and periportal lymp node mets with mild abdominal ascites. Additionally, suspected nodular metastatic implant in the right retroperitoneum posterior to the right kidney. Unable to confirm diagnosis of HCC on
imaging alone, liver biopsy was then performed on 05/01, which returned with HCC moderate differentiated, neg for hepatitis B and C. He established care with Dr. Richardson, with plans for thrombectomy next week. Abdominal US on admission with Right lobe
hepatic mass correlating with known biopsy-proven hepatocellular carcinoma. Additional suspected smaller hepatic lesion versus caterina hepatis lymph node.
Ascites, most prominent in the right lower and left lower quadrants. Prior cholecystectomy. No findings to suggest biliary tract dilatation. LFTs elevated flaquito 1.4, AST 291, ALT 129, alk phos 575, INR 1.4. He is currently on therapeutic lovenox.
I suspect the thrombus is contributing to his symptoms vs. ascites vs. mass effect. 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 Will await recommendations from oncology as to next steps in his workup and treatment.
If he has recurrence of diarrhea, recommend checking stool studies. If enough ascites, would recommend paracentesis to analyze ascitic fluid and rule out SBP. His elevated LFTs are likely 2/2 HCC with intrahepatic cholestasis.
Original Note:
Consultation
-
Date/Time Consultation Requested: 05/25/25 0700
Date/Time Consultation Performed: 05/25/25 0950
Requesting Provider: Andrew Bolden MD
Performing Provider: DANII Pang, Alisia Booker DO
Reason for Consultation: confusion, distention, nausea, vomiting, diarrhea
Medical History
Chief Complaint / HPI
Chief Complaint: nausea, decreased appetite, diarrhea
History of Present Illness:
Pt is an 79yo with hx multiple medical problems including hogue's esophagus, PUD, H pylori, Asthma, PAF with admission in February for Sotalol loading, GERD, prior TIA, CAD, prior cedrick, mild to moderate MR, prostate CA with prior radiation, newly
diagnosed liver CA with local mets and extension of clot to IVC on Lovenox with care with [facility] with multiple issue with decreased oral intakes, nausea, vomiting, diarrhea, weakness, abdominal pain, distention, confusion with visual
changes. He was also have issues with FBS with blood sugar of 500 then <30. Pt also noted with persistent leukocytosis, rise in LFT's with 05/07 labs - bili 0.9, AST 70, ALT 33, alk phos 267. Repeat labs on admission flaquito 1.4, AST 291, ALT 129,
alk phos 575. per family baseline hbg around 9. Initial hbg 12.3 then 9 after admission.
In review with brother who is MD patient was diagnosed with liver CA several weeks ago. It has taken time for biopsy, imaging and now due for thrombectomy with radiology. He has noted a decline over then few weeks with decreased oral
intakes, nausea that was initially improved with Reglan BID but now eating less. He has had small amounts of vomiting. He also had some diarrhea that was self limiting. Pt has tried supplement but also difficulty tolerating. He otherwise denies
dysphagia, hematemesis, constipation or rectal bleeding. He initially was living alone but now requiring assistance with care. Last EGD/colon [address] matias.
05/24/25 US abdomen
IMPRESSION: Right lobe hepatic mass correlating with known biopsy-proven hepatocellular carcinoma. Additional suspected smaller hepatic lesion versus caterina hepatis lymph node.
Ascites, most prominent in the right lower and left lower quadrants. Prior cholecystectomy. No findings to suggest biliary tract dilatation.
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 Mid to distal abdominal aorta significantly obscured, most likely by overlying bowel
05/24/25 CT head There are mild changes of cortical atrophy and chronic ischemic disease but no acute findings
05/01/25 liver bx - HCC moderate differentiated with neg hepatitis B and C testing
Past Medical History
Past Medical History: Arrhythmias (PAF), Asthma, CAD, Cancer (prostate CA with prior radiation, newly diagnosed liver CA with local mets and extension of clot to IVC on Lovenox), CVA (TIA in past ), HTN, NIDDM, Valvular Disease (mild to moderate
regurgitation) and Other (hogue's, PUD, H pylori )
Past Surgical History: Cholecystectomy
Social History
Tobacco: Former Smoker
Alcohol: None
Drug: None
Living: Alone (but now requiring assist with family )
Employment: Retired (prior professor )
Family History
Family History: Other (grandmother colon CA, mother with lung CA)
Allergies / Home Medications
Allergy/AdvReac Type Severity Reaction Status Date / Time
cefaclor Allergy hives;swemary Verified 04/08/25 10:08
ing
lisinopril Allergy cough Verified 04/08/25 10:08
oxycodone (From OxyContin) Allergy violent Verified 04/08/25 10:08
dreams,
jumpy,
nervous
penicillin V Allergy Unknown Verified 04/08/25 10:08
Penicillins Allergy hives;swell Verified 04/08/25 10:08
ing
�Medication �Instructions �Recorded
atorvastatin 40 mg tablet 40 mg PO HS 05/20/21
insulin glargine 100 unit/mL (3 20 unit SC HS 07/13/24
mL) subcutaneous pen (Lantus
Solostar U-100 Insulin)
sertraline 25 mg tablet 100 mg PO HS 07/13/24
albuterol sulfate 90 mcg/actuation 2 puff inhalation R Q4HPRN PRN 04/30/25
aerosol inhaler (Ventolin HFA) sob/wheezing
lorazepam 0.5 mg tablet 0.5 mg PO DAILYPRN PRN prior to mri 04/30/25
pantoprazole 40 mg tablet,delayed 40 mg PO DAILY 04/30/25
release
enoxaparin 80 mg/0.8 mL 80 mg SC Q12H 05/01/25
subcutaneous syringe (Lovenox)
bumetanide 0.5 mg tablet 0.5 mg PO DAILY 05/24/25
empagliflozin 10 mg tablet 10 mg PO DAILY 05/24/25
(Jardiance)
metoclopramide HCl 5 mg tablet 5 mg PO BID 05/24/25
sotalol 80 mg tablet 40 mg PO BID 05/24/25
tamsulosin 0.4 mg capsule 0.4 mg PO QPM 05/24/25
Review of Systems
-
History Source: Patient and Family
Constitutional: Reports Weight Loss (but noted gain with LE swelling)
EENT: Reports No Symptoms
Respiratory: Reports Trouble Breathing
Cardiac: Reports No Symptoms
Abdomen/GI: Reports Nausea, Vomiting, Diarrhea and Other (decrease oral intakes)
: Reports No Symptoms
Musculoskeletal: Reports Other (hx falls)
Neurological: Reports Dizzy, Weakness and Other (confusions)
Endocrine: Reports No Symptoms
Hematologic/Lymphatic: Reports No Symptoms
Vital Signs
Temp Pulse Resp BP Pulse Ox
97.7 F 89 15 141/71 89
05/25/25 08:04 05/25/25 08:04 05/25/25 08:04 05/25/25 08:04 05/25/25 08:04
Physical Exam
Exam
General: Other (pale appearing )
HEENT: Normocephalic and Anicteric
Respiratory: Clear
Cardiac: Regular Rhythm
GI: Soft, Non Tender and Distended (minimal )
Musculoskeletal: No Clubbing, No Cyanosis and Edema (diffuse b/l lower ext )
Skin: Warm and Dry
Neuro: Awake, Alert and Other (forgetful at times )
Psych: Calm
Results
WBC 14.7 10^3/uL (4.8-10.8) H 05/25/25 06:14
Hgb 9.9 g/dL (13.0-18.0) L 05/25/25 06:14
Hct 34.3 % (39.0-52.0) L 05/25/25 06:14
MCV 91.7 fL (80.0-94.0) 05/25/25 06:14
Plt Count 346 10^3/uL (130-400) D 05/25/25 06:14
Absolute Neuts (auto) 12.8 10^3/uL (1.4-6.5) H 05/25/25 06:14
PT 17.7 Sec (11.4-14.6) H 05/24/25 10:55
INR 1.40 05/24/25 10:55
APTT 44.2 Sec (23.4-35.0) H 05/24/25 10:55
Sodium 133 mmol/L (135-145) L 05/25/25 06:14
Potassium 3.9 mmol/L (3.5-5.1) 05/25/25 06:14
Chloride 100 mmol/L (98-107) 05/25/25 06:14
Carbon Dioxide 28 mmol/L (22-30) 05/25/25 06:14
BUN 28 mg/dl (9-20) H 05/25/25 06:14
Creatinine 1.1 mg/dL (0.7-1.3) 05/25/25 06:14
Calcium 9.4 mg/dl (8.4-10.2) 05/25/25 06:14
Total Bilirubin 1.1 mg/dl (0.2-1.3) 05/25/25 06:14
AST 526 U/L (17-59) H* 05/25/25 06:14
ALT 245 U/L (0-50) H 05/25/25 06:14
Alkaline Phosphatase 632 U/L (38-126) H 05/25/25 06:14
Diagnostic Image Results:
EGD 2019- Dr. Matias - Z-line irregular, at the gastroesophageal junction. Biopsied.
- Non-bleeding erosive gastropathy. Biopsied.
- Erythematous mucosa in the antrum. Biopsied.
- Normal examined duodenum.
colonoscopy 2019 [address] Matias - One 4 mm polyp in the ascending colon, removed with a
cold snare. Resected and retrieved.
- One diminutive polyp in the rectum, removed with a
jumbo cold forceps. Resected and retrieved.
- Diverticulosis in the sigmoid colon.
05/24/25 US abdomen
IMPRESSION: Right lobe hepatic mass correlating with known biopsy-proven hepatocellular carcinoma. Additional suspected smaller hepatic lesion versus caterina hepatis lymph node.
Ascites, most prominent in the right lower and left lower quadrants. Prior cholecystectomy. No findings to suggest biliary tract dilatation.
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 Mid to distal abdominal aorta significantly obscured, most likely by overlying bowel
05/24/25 CT head There are mild changes of cortical atrophy and chronic ischemic disease but no acute findings
05/01/25 liver bx - HCC moderate differentiated with neg hepatitis B and C testing
04/13/25 MRI abdomen
Large heterogeneous mass in the superior right hepatic lobe in keeping with the provided history of hepatocellular carcinoma, similar in size compared to the recent CT abdomen/pelvis from 03/28/2025. Contiguous tumor thrombus in the inferior vena
cava. Two smaller satellite lesions in the inferior right hepatic lobe.
Bulky portacaval and periportal lymph node metastases.
Mild abdominal ascites.
Suspected small nodular metastatic implant in the right retroperitoneum posterior to the right kidney.
04/08/25 CR Obstruct Series W/pa Chest
1. No acute cardiopulmonary process.
2. Non-specific bowel gas pattern without signs of obstruction.
3. Moderate diffuse colonic stool burden may reflect constipation.
03/28/25 - CT Abd/pel W Iv And Oral Contr
Markedly heterogeneous appearance of large portion of the right lobe of the liver suspicious for ill-defined mass measuring greater than 12 cm. In combination with prominent portacaval lymphadenopathy, findings would be most suggestive of primary
hepatic malignancy. Smaller right lobe hepatic lesion cannot be excluded. Metastatic disease would be less likely. Consider MRI for more complete evaluation.
Mild retroperitoneal lymphadenopathy.
Mildly enlarged prostate gland with prostate radiation implant seeds, mild extrinsic compression upon the urinary bladder base.
Prior cholecystectomy.
Assessment / Plan
-
Pt is an 79yo with hx multiple medical problems including hogue's esophagus, PUD, H pylori, Asthma, PAF with admission in February for Sotalol loading, GERD, prior TIA, CAD, prior cedrick, mild to moderate MR, prostate CA with prior radiation, newly
diagnosed liver CA with local mets and extension of clot to IVC on Lovenox with care with [facility] with multiple issue with decreased oral intakes, nausea, vomiting, diarrhea, weakness, abdominal pain, distention, confusion with visual
changes. He was also have issues with FBS with blood sugar of 500 then <30. Pt also noted with persistent leukocytosis, rise in LFT's with 05/07 labs - bili 0.9, AST 70, ALT 33, alk phos 267. Repeat labs on admission flaquito 1.4, AST 291, ALT 129,
alk phos 575. per family baseline hbg around 9. Initial hbg 12.3 then 9 after admission. In review with brother who is MD patient was diagnosed with liver CA several weeks ago. It has taken time for biopsy, imaging and now due for thrombectomy
with radiology. He has noted a decline over then few weeks with decreased oral intakes, nausea that was initially improved with Reglan BID but now eating less. He has had small amounts of vomiting. He also had some diarrhea that was self
limiting. Pt has tried supplement but also difficulty tolerating.
He initially was living alone but now requiring assistance with care. Last EGD/colon [address] matias.
05/24/25 US abdomen
IMPRESSION: Right lobe hepatic mass correlating with known biopsy-proven hepatocellular carcinoma. Additional suspected smaller hepatic lesion versus caterina hepatis lymph node.
Ascites, most prominent in the right lower and left lower quadrants. Prior cholecystectomy. No findings to suggest biliary tract dilatation.
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 Mid to distal abdominal aorta significantly obscured, most likely by overlying bowel
05/24/25 CT head There are mild changes of cortical atrophy and chronic ischemic disease but no acute findings
05/01/25 liver bx - HCC moderate differentiated with neg hepatitis B and C testing
-newly diagnosis metastatic liver CA with involvement IVC(has not started treatment, 03/2025 hep B/c neg)
-rise in LFT's
-ascites
-hyponatremia
-confusion on admission - hypoglycemia vs other
-hyperglycemia then hypoglycemia
-nausea/decreased appetite
-diarrhea
-persistent leukocytosis
-dyspnea at rest
-b/l LE swelling
-DNR
other med problems:
hogue's esophagus, PUD, H pylori, Asthma, PAF with admission in February for Sotalol loading, GERD, prior TIA, CAD, mild to moderate MR, prostate CA with prior radiation, prior cedrick
PLAN:
etiology of symptoms with concern for HCC with progression
etiology of rise in LFt's related to tumor burden vs other -- no intrahepatic biliary dilation with normal CBD on US on admission
pt and brother wish to review with oncology as due for thrombectomy as next step
trend LFT's and INR -- current INR 1.4 on admission
monitor diarrhea during admission and check stool studies if persists
monitor oral intakes - currently on regular diet supplement if able to tolerate
noted ascites per US but clinical only mild distention-- if worsens consider tap
Reglan currently held as [id number] on admission will repeat EKG in AM
remains on Zofran and Compazine PRN for now
cont Protonix daily
remain on high dose Lovenox- trend hbg with use
will review with Dr. Booker for further recs
-
-
Thank you for consultation and allowing me to participate in the patient's care. Please call the fuel conversion technician GI physician during the after hours with any questions or concerns.
[2025-05-25 10:15] VITALS: BP 127/67; PULSE 85; O2SAT 91
--- NOTE | 2025-05-25 10:29 | W.PN.HOSP.TC ---
Today's Communication/Plan
-
IV dextrose for now
F/W oncology & GI recommendations / Goal of care discussion.
Pt felt better with symptomatic treatment with morphine and Compazine, will continue as as needed
Assessment / Plan
Assessment / Plan
Physical Exam
General: chronically ill looking, No Apparent Distress
HEENT: Normocephalic, Moist mucous membranes and Atraumatic
Respiratory: Clear
Cardiac: S1/S2 and Regular Rhythm; No Murmur or Rub
GI: Soft, mildly distended ( he was sitting in bed at the time ) , Normal Bowel Sounds and not tender
Rectal: Deferred by Provider
Musculoskeletal: No Clubbing, No Cyanosis and No Edema
Skin: No Rash
Neuro: Nonfocal/grossly intact
Psych: calm, pleasant
# Failure to thrive
Symptomatic hypoglycemia secondary to medications with poor oral intake
# Type 2 diabetes
-Hold Jardiance and Lantus 20 units
c/w Low glucose infusion
Will re-introduce meds when BS stable and going up
# Toxic metabolic encephalopathy/hypothermia secondary to hypoglycemia
- Ammonia level negative
- CT head shows mild changes of cortical atrophy and chronic ischemic disease without acute findings
- Metabolic encephalopathy and double vision now resolved
Pt is AAOX3.
# Transaminitis secondary to liver cancer
-Ammonia level negative
-INR 1.4
US showed right liver mass. Prior cholecystectomy. Ascites, most prominent in the right lower and left lower quadrants.
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
- Continue Lovenox
Pt felt better with symptomatic treatment with morphine and Compazine, will continue as as needed
US Ascites, most prominent in the right lower and left lower quadrants.
# Leukocytosis likely secondary to liver cancer
-Elevated inflammatory markers secondary to malignancy
- Check urinalysis, chest x-ray, abdominal ultrasound to evaluate for source of infection
- Check blood cultures
# Exertional dyspnea
- Check chest x-ray and cardiac BNP given history of moderate mitral regurgitation
# Bilateral lower extremity edema secondary to hypoalbuminemia
- Continue Bumex
# Anemia of chronic disease
Paroxysmal atrial fibrillation/Bilateral carotid artery stenosis
- Continue Lovenox
- Continue sotalol
Essential hypertension
- Continue amlodipine
Moderate mitral regurgitation
Hyponatremia
Prior TIA
- Continue statin
Asthma
- Continue albuterol
Prostate cancer status post radiation
- Continue tamsulosin
Anxiety/depression
- Continue sertraline
- Continue Ativan
History of GERD/peptic ulcer
- Continue Protonix
DNR/DNI
DVT prophylaxis�Lovenox
Regular diet
Total time spent to see the patient, examine the patient, review data and lab results, discuss treatment plan with patient, family, consultants, nursing staff around 55 minutes
Anticipated Discharge: > 48 hours
Subjective/Interval History
-
Date of Service: May 25, 2025
Patient feels better overall than yesterday, no pain in abdomen, feels bloated
No issues with urine
No chest pain
He feels his thinking is better
Objective Data
-
Labs:
Laboratory Results
05/25/25
06:14
WBC 14.7 H
Hgb 9.9 L
Hct 34.3 L
Plt Count 346 D
Sodium 133 L
Potassium 3.9
Chloride 100
Carbon Dioxide 28
BUN 28 H
Creatinine 1.1
Glucose 125 H
Calcium 9.4
Total Bilirubin 1.1
AST 526 H*
ALT 245 H
Alkaline Phosphatase 632 H
Vital Signs:
Vital Signs
Temp Pulse Resp BP Pulse Ox
97.7 F 89 15 141/71 89
05/25/25 08:04 05/25/25 08:04 05/25/25 08:04 05/25/25 08:04 05/25/25 08:04
I&O
05/24/25 05/25/25 05/26/25
06:59 06:59 06:59
Intake Total 1200 / 1200
Output Total 250 / 250
Balance 950 / 950
[2025-05-25 11:06] VITALS: BP 127/67; PULSE 85; O2SAT 91
--- NOTE | 2025-05-25 11:39 | CON.ONC ---
Documented by User: Rubén Sahu MD, Resident 05/25/25 15:06
Consultation
-
Date Consultation Requested: 05/25/25
Date Consultation Performed: 05/25/25
Requesting Provider: Dr. Bolden
Performing Provider: Dr. Sahu; Dr. Tucker
Reason for Consultation: Liver cancer
Impression
Impression
#Hepatocellular carcinoma with local metastases
#Anemia
#IVC thrombus
#Transaminitis
#Leukocytosis
Biopsy-proven HCC 05/01/2025, following with Dr. Richardson, tentatively scheduled for IR embolotherapy next week
Given metastatic HCC and declining functional status, patient and family considering transition to palliative care/hospice
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
Hgb 9.9, decreased from 12.3 on presentation yesterday (likely dilutional, as patient received 2 L IVF's between CBCs)
WBCs 14.7 with neutrophilia
AST 526, ALT 245, alk phos 632, RDW 19.2, CRP 149, INR 1.4, T. bili 1.1
Plan
Plan
#Hepatocellular carcinoma with local metastases
#Anemia
#IVC thrombus
#Transaminitis
Patient and family amenable to meeting with hospice team
Monitor CBC, clinical status while inpatient
If patient and family decide to pursue further treatment for HCC, follow-up outpatient with Dr. Richardson
Patient History
History of Present Illness
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
discomfort, decreased oral intake, and confusion. Patient was seen at the bedside with his daughter and brother present. Patient's functional status has declined over the past 2 weeks, with more pronounced worsening over the prior 4 days. Patient
had elevated and labile blood sugars at home leading up to presentation at the ED. As result, patient increased his Lantus from 20 to 35 units for 1 administration the night prior to presentation. On presentation, his sugar was <30. Patient
associated vomiting and confusion, which resolved with correction of his blood sugar. Patient follows with Dr. Richardson for his HCC. Plan was for IR embolotherapy for debulking of the tumor with Dr. Merlos next , with immunotherapy to
follow. Patient's brother questions whether his current functional status can tolerate the treatment. Patient's abdominal discomfort has been associated with progressive bloating and distention in recent days. Patient has never required
paracentesis previously. Abdominal ultrasound performed yesterday showed abdominal ascites in the RLQ and LLQ. Patient has also had bilateral lower extremity pitting edema for the past month.
Heme-onc team discussed with patient, his daughter, and his brother the challenges posed by his metastatic liver cancer and declining functional status. Specifically, we discussed the benefits and downsides of pursuing IR embolotherapy and
subsequent immunotherapy in the setting of the patient's declining status. Patient and family amenable to meeting with the hospice team to further discuss goals of care.
Past-Medical/Surgical History
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
Patient Medication
�Medication �Instructions �Recorded �Confirmed �Last Taken �Type
atorvastatin 40 mg tablet 40 mg PO HS 05/20/21 05/24/25 04/30/25 History
insulin glargine 100 unit/mL (3 20 unit SC HS 07/13/24 05/24/25 05/23/25 19:30 History
mL) subcutaneous pen (Lantus 35 units
Solostar U-100 Insulin)
sertraline 25 mg tablet 100 mg PO HS 07/13/24 05/24/25 04/30/25 History
albuterol sulfate 90 mcg/actuation 2 puff inhalation R Q4HPRN PRN 04/30/25 05/24/25 Unknown History
aerosol inhaler (Ventolin HFA) sob/wheezing
lorazepam 0.5 mg tablet 0.5 mg PO DAILYPRN PRN prior to mri 04/30/25 05/24/25 Unknown History
pantoprazole 40 mg tablet,delayed 40 mg PO DAILY 04/30/25 05/24/25 Unknown History
release
enoxaparin 80 mg/0.8 mL 80 mg SC Q12H 05/01/25 05/24/25 04/29/25 History
subcutaneous syringe (Lovenox)
bumetanide 0.5 mg tablet 0.5 mg PO DAILY 05/24/25 05/24/25 Unknown History
empagliflozin 10 mg tablet 10 mg PO DAILY 05/24/25 05/24/25 Unknown History
(Jardiance)
metoclopramide HCl 5 mg tablet 5 mg PO BID 05/24/25 05/24/25 Unknown History
sotalol 80 mg tablet 40 mg PO BID 05/24/25 05/24/25 Unknown History
tamsulosin 0.4 mg capsule 0.4 mg PO QPM 05/24/25 05/24/25 Unknown History
Active Medications
Generic Name Dose Route Start Last Admin
Trade Name Freq PRN Reason Stop Dose Admin
Acetaminophen 650 mg 05/24/25 17:28 05/24/25 23:58
Acetaminophen 325 Mg Tablet PO 06/21/25 17:27 650 mg
Q6HPRN PRN Administration
mild pain/ fever>100.5F
Albuterol 2 puff 05/24/25 14:45
Albuterol Hfa [90 Mcg/Dose] Inhaler INH
R Q4HPRN PRN
sob/wheezing
Protocol
Bumetanide 0.5 mg 05/25/25 08:00 05/25/25 08:02
Bumetanide 0.5 Mg Tablet PO 0.5 mg
DAILY CELENA Administration
Dextrose 12.5 grams 05/24/25 14:45
Dextrose 50% (0.5 Grams/Ml) 50 Ml Syringe IV 06/21/25 14:44
[id number] PRN
hypoglycemia
Protocol
Enoxaparin Sodium 80 mg 05/24/25 20:00 05/25/25 07:57
Enoxaparin Sodium 80 Mg/0.8 Ml Syringe SC 06/21/25 19:59 80 mg
Q12H CELENA Administration
Glucagon 1 mg 05/24/25 14:45
Glucagon 1 Mg Vial IM 06/21/25 14:44
PRN PRN
hypoglycemia
Protocol
Dextrose/Sodium Chloride 1,000 mls @ 75 mls/hr 05/25/25 08:00 05/25/25 07:56
D5/0.9% Sodium Chloride IV 1,000 mls
.[id number] CELENA Administration
Insulin Aspart 0 units 05/24/25 16:30 05/25/25 08:29
Insulin Aspart Low Resistance 300 Units/3 Ml Pen.Injctr SC 06/21/25 16:29 Not Given
AC CELENA
Protocol
Lorazepam 0.5 mg 05/24/25 14:45
Lorazepam 0.5 Mg Tablet PO 06/21/25 14:44
DAILYPRN PRN
prior to mri
Morphine Sulfate 2 mg 05/25/25 07:41 05/25/25 11:03
Morphine 2 Mg/Ml Syringe IV 06/08/25 07:40 2 mg
Q2HPRN PRN Administration
mod to severe pain
Ondansetron HCl 4 mg 05/24/25 14:45 05/25/25 04:00
Ondansetron 4 Mg/2 Ml Vial IV 06/21/25 14:44 4 mg
Q6HPRN PRN Administration
nausea and vomiting
Pantoprazole Sodium 40 mg 05/25/25 08:00 05/25/25 07:57
Pantoprazole 40 Mg Delayed Release Tablet PO 06/22/25 07:59 40 mg
DAILY CELENA Administration
Prochlorperazine Edisylate 5 mg 05/25/25 07:41 05/25/25 11:01
Prochlorperazine 10 Mg/2 Ml Vial IV 06/22/25 07:40 5 mg
Q6HPRN PRN Administration
severe nausea
Sertraline HCl 100 mg 05/24/25 22:00 05/24/25 21:28
Sertraline 100 Mg Tablet PO 06/21/25 21:59 100 mg
HS CELENA Administration
Sodium Chloride 0 flush 05/24/25 17:00
Sodium Chloride 0.9% (Flush) Syringe IV 06/21/25 16:59
PER PROTOCOL CELENA
Sotalol HCl 40 mg 05/24/25 20:00 05/25/25 08:03
Sotalol 80 Mg Tablet PO 06/21/25 19:59 40 mg
BID CELENA Administration
Tamsulosin HCl 0.4 mg 05/24/25 18:00 05/24/25 17:56
Tamsulosin 0.4 Mg Capsule PO 06/21/25 17:59 0.4 mg
QPM CELENA Administration
Review of Systems
-
History Source: Patient and Family
Constitutional: Reports Fatigue; Denies Fever
Respiratory: Reports Trouble Breathing
Cardiac: Denies Chest Pain
GI: Reports Nausea, Vomiting, Diarrhea, Anorexia, Bloated and Other (Abdominal distention); Denies Abdominal Pain or Pain
Neuro: Denies Headache
Physical Exam
-
General: Appears Chronically Ill; Negative Pain, Fever or Sweats
HEENT: Negative Jaundice
Cardiology: S1 and S2
Pulmonary: Clear
GI: Soft, Distended, Fluid Wave and Other (No asterixis appreciated); Negative Tense
Extremities: Edema (Bilateral pitting); Negative Phlebitic Signs
Skin: Warm, Dry and No Ecchymosis; Negative Jaundice
Hematologic / Lymphatic: No Petechiae
Psych: Calm
Labs
Lab Results
WBC 14.7 10^3/uL (4.8-10.8) H 05/25/25 06:14
RBC 3.74 10^6/uL (4.70-6.10) L 05/25/25 06:14
Hgb 9.9 g/dL (13.0-18.0) L 05/25/25 06:14
Hct 34.3 % (39.0-52.0) L 05/25/25 06:14
MCV 91.7 fL (80.0-94.0) 05/25/25 06:14
MCH 26.5 pg (27.0-31.0) L 05/25/25 06:14
MCHC 28.9 g/dL (33.0-37.0) L 05/25/25 06:14
RDW 19.2 % (11.5-14.5) H 05/25/25 06:14
Plt Count 346 10^3/uL (130-400) D 05/25/25 06:14
MPV 10.4 fL (7.4-10.4) 05/25/25 06:14
Abs Immat Gran (auto) 0.1 10^3/uL (0-0.05) H 05/25/25 06:14
Absolute Neuts (auto) 12.8 10^3/uL (1.4-6.5) H 05/25/25 06:14
Absolute Lymphs (auto) 0.7 10^3/uL (1.2-3.4) L 05/25/25 06:14
Absolute Monos (auto) 1.1 10^3/uL (0.1-0.6) H 05/25/25 06:14
Absolute Eos (auto) 0.0 10^3/uL (0-0.7) 05/25/25 06:14
Absolute Basos (auto) 0.0 10^3/uL (0-0.2) 05/25/25 06:14
Immature Gran % 0.6 % (0-0.5) H 05/25/25 06:14
Neutrophils % 87.3 % (42.2-75.2) H 05/25/25 06:14
Lymphocytes % 4.6 % (20.5-51.1) L 05/25/25 06:14
Monocytes % 7.2 % (1.7-9.3) 05/25/25 06:14
Eosinophils % 0.2 % (0-6) 05/25/25 06:14
Basophils % 0.1 % (0-2) 05/25/25 06:14
Creatinine 1.1 mg/dL (0.7-1.3) 05/25/25 06:14
Vital Signs
Vital Signs
Temp Pulse Resp BP Pulse Ox
97.7 F 89 15 141/71 89
05/25/25 08:04 05/25/25 08:04 05/25/25 08:04 05/25/25 08:04 05/25/25 08:04

Documented by User: Nima Tucker MD 05/25/25 16:08
Plan
Plan
#Hepatocellular carcinoma with local metastases
#Anemia
#IVC thrombus
#Transaminitis
Patient and family amenable to meeting with hospice team
Monitor CBC, clinical status while inpatient
If patient and family decide to pursue further treatment for HCC, follow-up outpatient with Dr. Richardson
Oncology Addendum:
Patient seen and evaluated and agree w/ resident note and plan as outlined
-metastatic hepatocellular carcinoma
-discussed overall plan of care w/ patient and family in detail
-now w/ overall decline in performance status patient expressed that he is not interested in proceeding w/ palliative treatment
-reviewed supportive care options in detail including both palliative care and hospice care
-after discussion - both patient and family expressed interest in a potential transition to hospice care at home
-hospice will be consulted
-discussed w/ hospitalist
[2025-05-25 12:57] LABS: Glucose - Point of Care 198 mg/dl (70-99)
--- NOTE | 2025-05-25 14:48 | CM ---
Addendum entered by Gabriel Loya 05/25/25 15:27:
Patient will need ambulance transport. Forms on chart. to schedule for tomorrow morning at 10 am
Confirmed d/c plan w/ patient's daughter, whom he lives with. Patient has a first floor set up, 2 small steps to get inside the home.
Confirmed w/ Maryse plan for tomorrow. O2 will be be delivered to the home today
IMM on chart
OO[facility] DNR on chart. Dr. Bolden aware to sign
Original Note:
Chart reviewed. Care ongoing.
GOC ongoing
Per [facility]/ Hospice, patient will d/c home tomorrow, hospice will sign on. Requested hospice referral. Referral completed in [facility]
CM will be updated on if transport will need to be arranged
Plan: D/c home tomorrow w/ Hospice
--- NOTE | 2025-05-25 15:04 | TRANSFER ---
Patient refused 1500 vital signs. Patient laying comfortably in bed. Oncology team to speak with hospice.
[2025-05-25 16:19] LABS: Glucose - Point of Care 129 mg/dl (70-99)
[2025-05-25] MEDS: FLOMAX PO (17:12)
[2025-05-25 20:19] VITALS: BP 117/61
[2025-05-25] MEDS: ZOLOFT 100 MG PO (21:07)
[2025-05-25 21:34] LABS: Glucose - Point of Care 120 mg/dl (70-99)
[2025-05-25 23:05] VITALS: BP 120/66
[2025-05-26 03:18] VITALS: BP 122/66
[2025-05-26] MEDS: BUMEX PO (09:00)
[2025-05-26] MEDS: BETAPACE PO (09:00)
[2025-05-26] MEDS: PROTONIX PO (09:01)
[2025-05-26 10:20] VITALS: BP 119/75
--- NOTE | 2025-05-26 13:17 | W.PN.HOSP.TC ---
Today's Communication/Plan
-
dc
Assessment / Plan
Assessment / Plan
Physical Exam
General: chronically ill looking, No Apparent Distress
HEENT: Normocephalic, Moist mucous membranes and Atraumatic
Respiratory: Clear
Cardiac: S1/S2 and Regular Rhythm; No Murmur or Rub
GI: Soft, mildly distended Normal Bowel Sounds and not tender
Rectal: Deferred by Provider
Musculoskeletal: No Clubbing, No Cyanosis and No Edema
Skin: No Rash
Neuro: AAO X3, followed commands. act
Psych: calm, not agitated.
# Goal of care discussion.
Patient and family met with oncology Dr. Tucker. Discussed goal of care prognosis. Patient and family decided hospice care. Consulted hospice, plan to discharge home on hospice. Arrangements to be made in cooperation with hospice and family.
# Failure to thrive
Symptomatic hypoglycemia secondary to medications with poor oral intake
# Type 2 diabetes
Stopped Jardiance and Lantus
Status post dextrose infusion
Should be off diabetic medications with poor oral intake and advanced cancer
# Toxic metabolic encephalopathy/hypothermia secondary to hypoglycemia
- Ammonia level negative
- CT head shows mild changes of cortical atrophy and chronic ischemic disease without acute findings
- Metabolic encephalopathy and double vision now resolved
Pt is AAOX3.
# Transaminitis secondary to liver cancer
-Ammonia level negative
-INR 1.4
US showed right liver mass. Prior cholecystectomy. Ascites, most prominent in the right lower and left lower quadrants.
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
Stopped Lovenox, pursuing hospice based on patient's wishes
US Ascites, most prominent in the right lower and left lower quadrants.
# Leukocytosis likely secondary to liver cancer
# Exertional dyspnea
- Check chest x-ray and cardiac BNP given history of moderate mitral regurgitation
# Bilateral lower extremity edema secondary to hypoalbuminemia
- Continue Bumex
# Anemia of chronic disease
Paroxysmal atrial fibrillation/Bilateral carotid artery stenosis
- Continue Lovenox
- Continue sotalol
Essential hypertension
- Continue amlodipine
Moderate mitral regurgitation
Hyponatremia
Prior TIA
- Continue statin
Asthma
- Continue albuterol
Prostate cancer status post radiation
- Continue tamsulosin
Anxiety/depression
- Continue sertraline
- Continue Ativan
History of GERD/peptic ulcer
- Continue Protonix
DNR/DNI
DVT prophylaxis�Lovenox
Regular diet
Total discharge time spent to see the patient, examine the patient, review data and lab results, discuss discharge plan with patient, family, hospice, consultants, welfare case worker, nursing staff around 65 minutes
Anticipated Discharge: Today
Subjective/Interval History
-
Date of Service: May 26, 2025
No complaints
He is comfortable, agreeing to go home on hospice
No urinary retention per scan at bed side, no dysuria
No chest pain
Objective Data
-
Labs:
Laboratory Results
05/26/25
06:00
WBC Cancelled
Hgb Cancelled
Hct Cancelled
Plt Count Cancelled
PT Cancelled
INR Cancelled
Sodium Cancelled
Potassium Cancelled
Chloride Cancelled
Carbon Dioxide Cancelled
BUN Cancelled
Creatinine Cancelled
Glucose Cancelled
Calcium Cancelled
Total Bilirubin Cancelled
AST Cancelled
ALT Cancelled
Alkaline Phosphatase Cancelled
Vital Signs:
Vital Signs
Temp Pulse Resp BP Pulse Ox
98.9 F 89 21 119/75 94
05/26/25 10:20 05/26/25 10:20 05/26/25 10:20 05/26/25 10:20 05/26/25 10:20
I&O
05/25/25 05/26/25 05/27/25
06:59 06:59 06:59
Intake Total 1200 / 1200 1020 / 1020 120 / 120
Output Total 250 / 250
Balance 950 / 950 1020 / 1020 120 / 120
--- NOTE | 2025-05-26 13:37 | W.DCSUMMARY ---
Discharge Summary
Discharge Data
Date of Admission: 05/24/25
Date of Discharge: 05/26/25
-
Pending Results: No
Hospital Course
79 years old male with history of hepatocellular carcinoma and local metastases with IVC to thrombus on Lovenox presented to the hospital with failure to thrive, weakness, abdominal discomfort, decreased oral intake and confusion. Patient was noted
to be hypoglycemic. He had medications induced hypoglycemia in setting of decreasing oral intake. Patient was given intravenous dextrose infusion. Holding diabetes medications. His mentation improved and went back to baseline. Patient was
evaluated by gastroenterology. Patient had ultrasound that showed liver mass and he had elevated liver enzymes consistent with his underlying diagnosis. Patient was evaluated by oncology. Goals of care discussion was made with the patient and
family. They decided to go home on hospice. Hospice was consulted. Arrangements were made for home hospice services. Patient remained hemodynamically stable was discharged in a stable condition.
Discharge Plan
-
Patient Disposition: Home with Hospice
Discharge Diagnosis/Procedures: Hepatocellular carcinoma
Diet: As tolerated
Referrals:
UNKNOWN - PT DOES,NOT KNOW [Family Provider]
Prescriptions:
Continued
atorvastatin 40 MG tablet
40 mg PO HS
sertraline 25 mg Tablet
100 mg PO HS
pantoprazole 40 mg Tablet,Delayed Release (Dr/Ec)
40 mg PO DAILY
albuterol sulfate [Ventolin HFA] 90 mcg/actuation Hfa Aerosol Inhaler
2 puff INHALATION R Q4HPRN PRN (Reason: sob/wheezing)
lorazepam 0.5 mg Tablet
0.5 mg PO DAILYPRN PRN (Reason: prior to mri)
metoclopramide HCl 5 mg tablet
5 mg PO BID
tamsulosin 0.4 mg capsule
0.4 mg PO QPM
bumetanide 0.5 mg tablet
0.5 mg PO DAILY
sotalol 80 mg tablet
40 mg PO BID
Discontinued
insulin glargine [Lantus Solostar U-100 Insulin] 100 unit/mL (3 mL) insulin pen
20 unit SC HS
enoxaparin [Lovenox] 80 mg/0.8 mL Syringe
80 mg SC Q12H
Jardiance 10 mg tablet
10 mg PO DAILY
Discharge Orders:
Discharge Patient (As Directed); Ordered 05/26/25
Ordered By: Kathy Bolden
Discharge Date and Time
Discharge Date/Time: 05/26/25 10:28
Print Language: BULGARIAN
== END 2025-05-26 10:28 | disposition hospice, home (50) | DRG 637 ==
LOC: 4 WEST ACU 13:22
PROVIDERS: Physician Assistant Medical; ADMITTING PHYSICIAN Hospitalist; ATTENDING PHYSICIAN Internal Medicine; EMERGENCY PHYSICIAN Student in an Organized Health Care Education/Training Program; OTHER PHYSICIAN Internal Medicine; OTHER PHYSICIAN Internal Medicine Hematology & Oncology
DX: E11.649 Type 2 diabetes mellitus with hypoglycemia without coma (principal); G92.8 Other toxic encephalopathy; C22.0 Liver cell carcinoma; R18.8 Other ascites; E87.1 Hypo-osmolality and hyponatremia; C77.9 Secondary and unspecified malignant neoplasm of lymph node, unspecified; Z51.5 Encounter for palliative care; E78.5 Hyperlipidemia, unspecified; I48.0 Paroxysmal atrial fibrillation; I10 Essential (primary) hypertension; E11.65 Type 2 diabetes mellitus with hyperglycemia; J45.909 Unspecified asthma, uncomplicated; R74.01 Elevation of levels of liver transaminase levels; R47.1 Dysarthria and anarthria; I34.0 Nonrheumatic mitral (valve) insufficiency; I25.10 Atherosclerotic heart disease of native coronary artery without angina pectoris; K21.9 Gastro-esophageal reflux disease without esophagitis; F32.A Depression, unspecified; F41.9 Anxiety disorder, unspecified; I82.220 Acute embolism and thrombosis of inferior vena cava; K22.70 Barrett's esophagus without dysplasia; N28.9 Disorder of kidney and ureter, unspecified; R68.0 Hypothermia, not associated with low environmental temperature; R62.7 Adult failure to thrive; D63.8 Anemia in other chronic diseases classified elsewhere; N40.0 Benign prostatic hyperplasia without lower urinary tract symptoms; G31.9 Degenerative disease of nervous system, unspecified; Z60.2 Problems related to living alone; Z66 Do not resuscitate; Z90.49 Acquired absence of other specified parts of digestive tract; Z87.11 Personal history of peptic ulcer disease; Z87.01 Personal history of pneumonia (recurrent); Z85.46 Personal history of malignant neoplasm of prostate; Z86.73 Personal history of transient ischemic attack (TIA), and cerebral infarction without residual deficits; Z92.3 Personal history of irradiation; Z80.0 Family history of malignant neoplasm of digestive organs; Z88.1 Allergy status to other antibiotic agents; Z88.0 Allergy status to penicillin; Z88.8 Allergy status to other drugs, medicaments and biological substances; Z79.899 Other long term (current) drug therapy; Z79.4 Long term (current) use of insulin; Z79.84 Long term (current) use of oral hypoglycemic drugs; Z87.891 Personal history of nicotine dependence; Z80.1 Family history of malignant neoplasm of trachea, bronchus and lung; Z86.0100 Personal history of colon polyps, unspecified; Z87.19 Personal history of other diseases of the digestive system
CPT/HCPCS: 70450; 71046; 76700; 80048; 80053; 80076; 81003; 81015; 82140; 82962; 83036; 83735; 83880; 85025; 85610; 85652; 85730; 86140; 87040; 93005; 97163; 97167; 97530; 99291